=== PATIENT | male | born 1935 | race Caucasian/White ===

== ENCOUNTER 2017-06-19 08:25 | Observation (INO) ==
[2017-06-19] MEDS ORDERED: SALINE FLUSH 10ml SYRINGE IVF PRN (08:39)
--- OUTSIDE RECORDS SUMMARY | 2017-06-19 08:53 | External Medical Summary | Referral Summary ---
:1935 Author Organization [facility] [place] [id number] Care Team Providers Name Role Phone Jonathan Milligan Primary Care Physician Encounter VC Date(s): 02/06/15 - 02/06/15 [facility] [place] [phone] [phone] Discharge Diagnosis: CAD (coronary artery disease) Discharge Diagnosis: Atrial fibrillation Discharge Diagnosis: Pure hypercholesterolemia Discharge Diagnosis: Essential hypertension Discharge Disposition: 01-Home or Self Care Attending Physician: Jonathan Milligan MD Admitting Physician: Jonathan Milligan MD Vital Signs Most recent to oldest [Reference Range]: 1 Temperature Tympanic [36.6-38.1 degC] 36.2 degC *LOW* (02/06/15 3:07 PM) Peripheral Pulse Rate [60-100 bpm] 76 bpm (02/06/15 3:07 PM) Respiratory Rate [14-20 br/min] 20 br/min (02/06/15 3:07 PM) Blood Pressure [90-140/60-90 mmHg] 144/72 mmHg *HI* (02/06/15 3:07 PM) Problem List Condition Effective Dates Status Health Status Informant Atrial fibrillation(Confirmed) Active CAD (coronary artery Active disease)(Confirmed) Coronary arteriosclerosis Active (disorder)(Confirmed) Essential hypertension Active (disorder)(Confirmed) High cholesterol(Confirmed) Active Hypertension(Confirmed) Resolved Pure hypercholesterolemia Active (disorder)(Confirmed) Allergies, Adverse Reactions, Alerts No Known Allergies Medications aspirin 81 mg oral tablet 1 tabs, Oral, Daily, # 90 tabs, 0 Refill(s) Start Date: 02/01/14 Status: Orderedmetoprolol tartrate 100 mg oral tablet 1 tabs, Oral, BID, # 180 tabs, 0 Refill(s) Start Date: 02/01/14 Status: Orderednitroglycerin 0.4 mg sublingual tablet See Instructions, PLACE 1 UNDER TONGUE NEEDED FOR CHEST PAIN.MAY REPEAT IN 5 MIN. X3 TOTAL.NO RELIEF-CALL 911., # 25 tabs, 1 Refill(s), eRx: [facility] #[id number], PLACE 1 UNDER TONGUE NEEDED FOR CHEST PAIN.MAY REPEAT IN 5 MIN. X3 TOTAL.NO RE... Start Date: 01/02/15 Status: OrderedRefresh Plus ophthalmic solution 1 drops, Eye-Both, BID, as needed for dry eyes, # 30 mL, 0 Refill(s) Start Date: 02/01/14 Status: Orderedsimvastatin 20 mg oral tablet See Instructions, TAKE ONE TABLET BY MOUTH AT BEDTIME, # 30 tabs, 5 Refill(s), eRx: [facility]#[id number], TAKE ONE TABLET BY MOUTH AT BEDTIME Start Date: 02/17/15 Status: Orderedtriamcinolone 0.025% topical ointment 1 ofelia, Topical, BID, # 15 g, 0 Refill(s), Pharmacy: [facility] #[id number] Start Date: 10/25/14 Stop Date: 10/29/14 Status: Orderedwarfarin 2 mg oral tablet See Instructions, TAKE THREE TABLETS BY MOUTH ONCE A DAY OR DIRECTED., # 100 tabs, 2 Refill(s), eRx: [facility] #[id number], TAKE THREE TABLETS BY MOUTH ONCE A DAY OR DIRECTED. Start Date: 03/03/15 Status: Ordered Results Coagulation Most recent to oldest [Reference Range]: 1 INR [0.8-1.2] 1.6 1 *HI* (02/06/15 4:00 PM) 1Result Comment: Normal (no anticoagulant): 0.8 - 1.2 Units Routine Therapeutic Range: 2.0 - 3.0 Units High Risk Therapeutic Range: 2.5 - 3.5 Units Immunizations Vaccine Date Refusal Reason influenza virus vaccine, inactivated 05/08/14 influenza virus vaccine, live 05/16/13 influenza virus vaccine, live 04/19/12 pneumococcal 13-valent conjugate vaccine1 02/06/15 pneumococcal 23-polyvalent vaccine 11/09/06 tetanus-diphth toxoids (Td) adult/adol 12/15/11 zoster vaccine live 02/09/13 1Early/Late Reason: Nursing Judgment Procedures Procedure Date Related Diagnosis Body Site Eye examination1 04/14/15 Colonoscopy2 06/04/10 1Dr Torsten Cantu2Repeat in 5 years Social History Social History Type Response Smoking Status Never smoker Assessment and Plan Extracted from: Title: Ambulatory Patient Education Author: Jonathan Milligan MD Date: 02/06 Family Medicine Coronary Artery Disease Coronary artery disease (CAD) is a process in which the heart (coronary) arteries narrow or become blocked from the development of atherosclerosis. Atherosclerosis is a disease in which plaque builds up on the inside of the heart arteries (coronary arteries). Plaque is made up of fats (lipids), cholesterol, calcium, and fibrous tissue. CAD can lead to a heart attack (myocardial infarction, ID). An ID can lead to heart failure, cardiogenic shock, or sudden cardiac . CAD can cause an ID through: Plaque buildup that can severely narrow or block the coronary arteries and diminish blood flow. Plaque that can become unstable and "rupture." Unstable plaque that ruptures within a coronary artery can form a clot and cause a sudden (acute) blockage. RISK FACTORS Many risk factors contribute to the development of CAD. These include: High cholesterol (dyslipidemia) levels. High blood pressure (hypertension). Smoking. Diabetes. Age. Gender. Men can develop CAD earlier in life than women. Family history. Inactivity or lack of regular physical or aerobic exercise. A diet high in saturated fats. Chronic kidney disease. SYMPTOMS When a coronary artery is narrowed or blocked, an ID can occur. ID symptoms can include: Chest pain (agina). Angina can occur by itself or it can also occur with pain in the neck, arm, jaw, or in the upper, middle back (mid-scapular pain). Profuse sweating (diaphoresis) without physical activity or movement. Shortness of breath (dyspnea). Irregular heartbeats (palpitations) that feel like your heart is skipping beats or is beating very fast. Nausea. Epigastric pain. Epigastric pain may occur as "heartburn." Tiredness (malaise). This can especially be present in the elderly. Women can have different (atypical) symptoms other than classic angina. DIAGNOSIS The diagnosis of CAD may include: An electrocardiography (ECG). An ECG does not diagnose CAD, but it is usefull in the detection of a sudden (acute) ID or as a marker for a previous ID. Depending on which heart (coronary) artery ma y be blocked, an ECG may not pickle sorter an ID pattern. Exercise stress test. A stress test can be performed at rest for people who are unable to do an exercise stress test. A stress test will only be abnormal if one or more of the large coronary arteries is significantly blocked. Blood tests. Tests may include samples to detect heart muscle damage ( such as troponin levels). Other tests may include cholesterol checks and an inflammation test (high-sensitivity C-reactive protein, hs-CRP). Coronary angiography. Screening people who have peripheral vascular disease (PAD). These people often times have CAD. TREATMENT The treatment of CAD includes the following: Lifestyle changes such as: Following a heart-healthy diet. A registered dietitian can you help educate you on healthy food options and changes. Quiting smoking. Following an exercise program approved by your caregiver. Maintaining a healthy weight. Lose weight as approved by your caregiver. Medicines to help control your blood pressure, cholesterol level, angina, and blood clotting. Medicines may include beta-blockers, LEILANI inhibitors, statins , nitrates, and anti-platelet medicines. If you have a heart stent and are taking anti-platelet medicine, it is important to not suddenly stop taking this medicine. Suddenly stopping anti- platelet medicine can result in an ID. Talk with y our caregiver before stopping medicine or if you cannot afford your medicine. If the coronary arteries are significantly blocked, surgery may be needed. This can include: Percutaneous coronary intervention (PCI) with or without stent placement. Coronary artery bypass graft surgery (CABG). SEEK IMMEDIATE MEDICAL CARE IF: You develop ID symptoms. This is a medical emergency. Get help at once. Call your local emergency service (911 in the [place] immediately. Do not drive yourself to the clinic or hospital. ID symptoms can include: Angina or pain that occurs in the neck, arm, jaw, or in the upper middle back. Profuse sweating without cause. Shortness of breath or difficulty breathing without cause. Unexplained nausea or epigastric pain that feels like heartburn. Document Released: 09/25/2012 Document Reviewed: 09/25/2012 [facility] Patient Information 2015 [employer]. This information is not intended to replace advice given to you by your health care provider. Make sure you discuss any questions you have with your health care provider. Coronary Artery Disease Coronary artery disease (CAD) is a process in which the heart (coronary) arteries narrow or become blocked from the development of atherosclerosis. Atherosclerosis is a disease in which plaque builds up on the inside of the heart arteries (coronary arteries). Plaque is made up of fats (lipids), cholesterol, calcium, and fibrous tissue. CAD can lead to a heart attack (myocardial infarction, ID). An ID can lead to heart failure, cardiogenic shock, or sudden cardiac . CAD can cause an ID through: Plaque buildup that can severely narrow or block the coronary arteries and diminish blood flow. Plaque that can become unstable and "rupture." Unstable plaque that ruptures within a coronary artery can form a clot and cause a sudden (acute) blockage. RISK FACTORS Many risk factors contribute to the development of CAD. These include: High cholesterol (dyslipidemia) levels. High blood pressure (hypertension). Smoking. Diabetes. Age. Gender. Men can develop CAD earlier in life than women. Family history. Inactivity or lack of regular physical or aerobic exercise. A diet high in saturated fats. Chronic kidney disease. SYMPTOMS When a coronary artery is narrowed or blocked, an ID can occur. ID symptoms can include: Chest pain (agina). Angina can occur by itself or it can also occur with pain in the neck, arm, jaw, or in the upper, middle back (mid-scapular pain). Profuse sweating (diaphoresis) without physical activity or movement. Shortness of breath (dyspnea). Irregular heartbeats (palpitations) that feel like your heart is skipping beats or is beating very fast. Nausea. Epigastric pain. Epigastric pain may occur as "heartburn." Tiredness (malaise). This can especially be present in the elderly. Women can have different (atypical) symptoms other than classic angina. DIAGNOSIS The diagnosis of CAD may include: An electrocardiography (ECG). An ECG does not diagnose CAD, but it is usefull in the detection of a sudden (acute) ID or as a marker for a previous ID. Depending on which heart (coronary) artery ma y be blocked, an ECG may not pickle sorter an ID pattern. Exercise stress test. A stress test can be performed at rest for people who are unable to do an exercise stress test. A stress test will only be abnormal if one or more of the large coronary arteries is significantly blocked. Blood tests. Tests may include samples to detect heart muscle damage ( such as troponin levels). Other tests may include cholesterol checks and an inflammation test (high-sensitivity C-reactive protein, hs-CRP). Coronary angiography. Screening people who have peripheral vascular disease (PAD). These people often times have CAD. TREATMENT The treatment of CAD includes the following: Lifestyle changes such as: Following a heart-healthy diet. A registered dietitian can you help educate you on healthy food options and changes. Quiting smoking. Following an exercise program approved by your caregiver. Maintaining a healthy weight. Lose weight as approved by your caregiver. Medicines to help control your blood pressure, cholesterol level, angina, and blood clotting. Medicines may include beta-blockers, LEILANI inhibitors, statins , nitrates, and anti-platelet medicines. If you have a heart stent and are taking anti-platelet medicine, it is important to not suddenly stop taking this medicine. Suddenly stopping anti- platelet medicine can result in an ID. Talk with y our caregiver before stopping medicine or if you cannot afford your medicine. If the coronary arteries are significantly blocked, surgery may be needed. This can include: Percutaneous coronary intervention (PCI) with or without stent placement. Coronary artery bypass graft surgery (CABG). SEEK IMMEDIATE MEDICAL CARE IF: You develop ID symptoms. This is a medical emergency. Get help at once. Call your local emergency service (911 in the [place] immediately. Do not drive yourself to the clinic or hospital. ID symptoms can include: Angina or pain that occurs in the neck, arm, jaw, or in the upper middle back. Profuse sweating without cause. Shortness of breath or difficulty breathing without cause. Unexplained nausea or epigastric pain that feels like heartburn. Document Released: 09/25/2012 Document Reviewed: 09/25/2012 [employer] Patient Information 2015 [employer]. This information is not intended to replace advice given to you by your health care provider. Make sure you discuss any questions you have with your health care provider. Coronary Artery Disease Coronary artery disease (CAD) is a process in which the heart (coronary) arteries narrow or become blocked from the development of atherosclerosis. Atherosclerosis is a disease in which plaque builds up on the inside of the heart arteries (coronary arteries). Plaque is made up of fats (lipids), cholesterol, calcium, and fibrous tissue. CAD can lead to a heart attack (myocardial infarction, ID). An ID can lead to heart failure, cardiogenic shock, or sudden cardiac . CAD can cause an ID through: Plaque buildup that can severely narrow or block the coronary arteries and diminish blood flow. Plaque that can become unstable and "rupture." Unstable plaque that ruptures within a coronary artery can form a clot and cause a sudden (acute) blockage. RISK FACTORS Many risk factors contribute to the development of CAD. These include: High cholesterol (dyslipidemia) levels. High blood pressure (hypertension). Smoking. Diabetes. Age. Gender. Men can develop CAD earlier in life than women. Family history. Inactivity or lack of regular physical or aerobic exercise. A diet high in saturated fats. Chronic kidney disease. SYMPTOMS When a coronary artery is narrowed or blocked, an ID can occur. ID symptoms can include: Chest pain (agina). Angina can occur by itself or it can also occur with pain in the neck, arm, jaw, or in the upper, middle back (mid-scapular pain). Profuse sweating (diaphoresis) without physical activity or movement. Shortness of breath (dyspnea). Irregular heartbeats (palpitations) that feel like your heart is skipping beats or is beating very fast. Nausea. Epigastric pain. Epigastric pain may occur as "heartburn." Tiredness (malaise). This can especially be present in the elderly. Women can have different (atypical) symptoms other than classic angina. DIAGNOSIS The diagnosis of CAD may include: An electrocardiography (ECG). An ECG does not diagnose CAD, but it is usefull in the detection of a sudden (acute) ID or as a marker for a previous ID. Depending on which heart (coronary) artery ma y be blocked, an ECG may not pickle sorter an ID pattern. Exercise stress test. A stress test can be performed at rest for people who are unable to do an exercise stress test. A stress test will only be abnormal if one or more of the large coronary arteries is significantly blocked. Blood tests. Tests may include samples to detect heart muscle damage ( such as troponin levels). Other tests may include cholesterol checks and an inflammation test (high-sensitivity C-reactive protein, hs-CRP). Coronary angiography. Screening people who have peripheral vascular disease (PAD). These people often times have CAD. TREATMENT The treatment of CAD includes the following: Lifestyle changes such as: Following a heart-healthy diet. A registered dietitian can you help educate you on healthy food options and changes. Quiting smoking. Following an exercise program approved by your caregiver. Maintaining a healthy weight. Lose weight as approved by your caregiver. Medicines to help control your blood pressure, cholesterol level, angina, and blood clotting. Medicines may include beta-blockers, LEILANI inhibitors, statins , nitrates, and anti-platelet medicines. If you have a heart stent and are taking anti-platelet medicine, it is important to not suddenly stop taking this medicine. Suddenly stopping anti- platelet medicine can result in an ID. Talk with y our caregiver before stopping medicine or if you cannot afford your medicine. If the coronary arteries are significantly blocked, surgery may be needed. This can include: Percutaneous coronary intervention (PCI) with or without stent placement. Coronary artery bypass graft surgery (CABG). SEEK IMMEDIATE MEDICAL CARE IF: You develop ID symptoms. This is a medical emergency. Get help at once. Call your local emergency service (911 in the [place] immediately. Do not drive yourself to the clinic or hospital. ID symptoms can include: Angina or pain that occurs in the neck, arm, jaw, or in the upper middle back. Profuse sweating without cause. Shortness of breath or difficulty breathing without cause. Unexplained nausea or epigastric pain that feels like heartburn. Document Released: 09/25/2012 Document Reviewed: 09/25/2012 [facility] Patient Information 2015 [employer]. This information is not intended to replace advice given to you by your health care provider. Make sure you discuss any questions you have with your health care provider. Coronary Angioplasty Coronary angioplasty is a procedure to widen a narrowed or blocked blood vessel of the heart (coronary arteries). The artery is usually blocked by cholesterol buildup (plaque) in the lining or rasmussen. Wh en a vessel in the heart becomes partially blocked, there is decreased blood flow to that area. This may lead to chest pain or a heart attack (myocardial infarction). LET YOUR CAREGIVER KNOW ABOUT: Any allergies you have, including allergies to shellfish or contrast dye. All medicines you are taking, including vitamins, herbs, eye drops, creams , and [id number] medicines. Previous problems you or members of your family have had with the use of anesthetics. Any blood disorders you have. Previous surgeries you have had. Any previous kidney problems or failure you have had. Medical conditions you have. Possibility of , if this applies. RISKS AND COMPLICATIONS Generally, this is a safe procedure. However, as with any procedure, problems can occur. Possible problems include: Injury to the blood vessels, including rupture or bleeding. Infection, bleeding, or bruising at the catheter site. Allergic reaction to the dye or contrast used. Kidney damage from the dye or contrast used. Blood clots that can lead to a stroke or heart attack. Bleeding into the abdomen (retroperitoneal bleeding). BEFORE THE PROCEDURE Do not eat or drink after midnight on the night before the procedure up until the procedure or as directed by your health care provider. You may drink enough water to take your medicines the morning of the procedure, if you were instructed to do so. Ask your health care provider about changing or stopping your regular medicines. This is especially important if you are taking diabetes medicines or blood thinners. PROCEDURE You may be given a medicine to help you relax (sedative) before and during the procedure through an IV tube. The area where the catheter will be inserted will be washed and shaved. This is usually done in the groin but may be done in the fold of your arm (near your elbow) or in the wrist. A medicine will be given to numb the area where the catheter will be inserted (local anesthetic). The catheter will be inserted into an artery using a guide wire. The catheter is guided to the location of the narrowed or blocked artery with a type of X-ray called fluoroscopy. Dye is then injected and X-rays are taken. The dye helps to show where any narrowing or blockages are located. Once positioned at the narrowed or blocked portion of the blood vessel, a balloon is inflated to make the artery wider. Expanding the balloon crushes the plaque into the wall of the vessel and improves the blood flow. Sometimes the artery may be made wider by removing plaque using a laser or other tools. When the blood flow is better, the balloon is deflated and the catheter is removed. The catheter is removed and a special dressing is placed over the insertion site. AFTER THE PROCEDURE If the procedure is done through the leg, you will be kept in bed lying flat for 6 hours. You will be told to not bend or cross your legs. The insertion site will be checked often. The pulse in your feet or wrist will be checked often. Additional blood tests, X-rays, and an electrocardiogram (or electrocardiography) may be done. You may need to stay in the hospital overnight for monitoring. Document Released: 07/01/2001 Document Revised: 07/09/2014 Document Reviewed: 03/11/2014 [facility] Patient Information 2015 [employer]. This information is not intended to replace advice given to you by your health care provider. Make sure you discuss any questions you have with your health care provider. Coronary Artery Disease Coronary artery disease (CAD) is a process in which the heart (coronary) arteries narrow or become blocked from the development of atherosclerosis. Atherosclerosis is a disease in which plaque builds up on the inside of the heart arteries (coronary arteries). Plaque is made up of fats (lipids), cholesterol, calcium, and fibrous tissue. CAD can lead to a heart attack (myocardial infarction, ID). An ID can lead to heart failure, cardiogenic shock, or sudden cardiac . CAD can cause an ID through: Plaque buildup that can severely narrow or block the coronary arteries and diminish blood flow. Plaque that can become unstable and "rupture." Unstable plaque that ruptures within a coronary artery can form a clot and cause a sudden (acute) blockage. RISK FACTORS Many risk factors contribute to the development of CAD. These include: High cholesterol (dyslipidemia) levels. High blood pressure (hypertension). Smoking. Diabetes. Age. Gender. Men can develop CAD earlier in life than women. Family history. Inactivity or lack of regular physical or aerobic exercise. A diet high in saturated fats. Chronic kidney disease. SYMPTOMS When a coronary artery is narrowed or blocked, an ID can occur. ID symptoms can include: Chest pain (agina). Angina can occur by itself or it can also occur with pain in the neck, arm, jaw, or in the upper, middle back (mid-scapular pain). Profuse sweating (diaphoresis) without physical activity or movement. Shortness of breath (dyspnea). Irregular heartbeats (palpitations) that feel like your heart is skipping beats or is beating very fast. Nausea. Epigastric pain. Epigastric pain may occur as "heartburn." Tiredness (malaise). This can especially be present in the elderly. Women can have different (atypical) symptoms other than classic angina. DIAGNOSIS The diagnosis of CAD may include: An electrocardiography (ECG). An ECG does not diagnose CAD, but it is usefull in the detection of a sudden (acute) ID or as a marker for a previous ID. Depending on which heart (coronary) artery ma y be blocked, an ECG may not pickle sorter an ID pattern. Exercise stress test. A stress test can be performed at rest for people who are unable to do an exercise stress test. A stress test will only be abnormal if one or more of the large coronary arteries is significantly blocked. Blood tests. Tests may include samples to detect heart muscle damage ( such as troponin levels). Other tests may include cholesterol checks and an inflammation test (high-sensitivity C-reactive protein, hs-CRP). Coronary angiography. Screening people who have peripheral vascular disease (PAD). These people often times have CAD. TREATMENT The treatment of CAD includes the following: Lifestyle changes such as: Following a heart-healthy diet. A registered dietitian can you help educate you on healthy food options and changes. Quiting smoking. Following an exercise program approved by your caregiver. Maintaining a healthy weight. Lose weight as approved by your caregiver. Medicines to help control your blood pressure, cholesterol level, angina, and blood clotting. Medicines may include beta-blockers, LEILANI inhibitors, statins , nitrates, and anti-platelet medicines. If you have a heart stent and are taking anti-platelet medicine, it is important to not suddenly stop taking this medicine. Suddenly stopping anti- platelet medicine can result in an ID. Talk with y our caregiver before stopping medicine or if you cannot afford your medicine. If the coronary arteries are significantly blocked, surgery may be needed. This can include: Percutaneous coronary intervention (PCI) with or without stent placement. Coronary artery bypass graft surgery (CABG). SEEK IMMEDIATE MEDICAL CARE IF: You develop ID symptoms. This is a medical emergency. Get help at once. Call your local emergency service (911 in the [place] immediately. Do not drive yourself to the clinic or hospital. ID symptoms can include: Angina or pain that occurs in the neck, arm, jaw, or in the upper middle back. Profuse sweating without cause. Shortness of breath or difficulty breathing without cause. Unexplained nausea or epigastric pain that feels like heartburn. Document Released: 09/25/2012 Document Reviewed: 09/25/2012 [facility] Patient Information 2015 [employer]. This information is not intended to replace advice given to you by your health care provider. Make sure you discuss any questions you have with your health care provider. No follow up information was provided. Extracted from: Title: Office Visit Note Author: Jonathan Milligan MD Date: 02/06/15 Assessment/Plan Atrial fibrillation Chronic stable rate controlled. Medications reviewed no changes recommended. All up in 6 months. Ordered: Office Visit Level 4 Est 75813 CAD (coronary artery disease) No signs of ischemia. Dictations reviewed no changes recommended. He'll have his treadmill in February as mentioned above. Follow-up here in 6 months. Ordered: pneumococcal 13-valent conjugate vaccine, 0.5 mL, IntraMuscular, Once, First Dose: 02/06/15 16:00:00 CDT, Stop Date: 02/06/15 16:00:00 CDT, Form: Injection Office Visit Level 4 Est 42342 Essential hypertension Pressure appears to be adequately controlled. No change in current treatment is recommended. Follow-up in 6 months. Ordered: Office Visit Level 4 Est 39359 Pure hypercholesterolemia Recent laboratory studies are reviewed. Change in current treatment is recommended. Follow-up in 6 months. Ordered: Office Visit Level 4 Est 10747
--- OUTSIDE RECORDS SUMMARY | 2017-06-19 08:53 | External Medical Summary | Referral Summary ---
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 Discharge Diagnosis: Keratosis, seborrheic Discharge Diagnosis: AK (actinic keratosis) Discharge Diagnosis: Common wart Discharge Diagnosis: Ovalle angioma Discharge Disposition: 01-Home or Self Care Attending Physician: Tripp Stephens MD Admitting Physician: Tripp Stephens MD Vital Signs No data available for this section Problem List Condition Effective Dates Status Health Status Informant CAD (coronary artery Active disease)(Confirmed) Atrial fibrillation(Confirmed) Active Coronary arteriosclerosis Active (disorder)(Confirmed) Essential hypertension Active [...] 911., # 25 tabs, 1 Refill(s), [facility][id number], PLACE 1 UNDER TONGUE NEEDED FOR CHEST PAIN.MAY REPEAT IN 5 MIN. X3 TOTAL.NO RE... Start Date: 01/02/15 Status: OrderedRefresh Plus ophthalmic solution 1 drops, Eye-Both, BID, as needed for dry eyes, # 30 mL, 0 Refill(s) Start Date: 02/01/14 Status: Orderedsimvastatin 20 mg oral tablet See Instructions, TAKE ONE TABLET BY MOUTH AT BEDTIME, # 30 tabs, 5 Refill(s), eRx: [facility]#[id number], TAKE ONE TABLET BY MOUTH AT BEDTIME Start Date: 08/19/15 Status: Orderedwarfarin 2 mg oral tablet See Instructions, TAKE THREE TABLETS BY MOUTH ONCE A DAY OR DIRECTED., # 100 tabs, 5 Refill(s), eRx: [facility] #[id number], TAKE THREE TABLETS BY MOUTH ONCE A DAY OR DIRECTED. Start Date: 12/17/15 Status: Ordered Results No data available for this section Immunizations Vaccine Date Refusal Reason influenza virus vaccine, inactivated 07/21/15 influenza virus vaccine, inactivated 05/08/14 influenza virus vaccine, live 05/16/13 influenza virus vaccine, live 04/19/12 pneumococcal 13-valent conjugate vaccine1 02/06/15 pneumococcal 23-polyvalent vaccine 11/09/06 tetanus-diphth toxoids (Td) adult/adol 12/15/11 zoster vaccine live 02/09/13 1Early/Late Reason: Nursing Judgment Procedures Procedure Date Related Diagnosis Body Site Destruction (eg, laser surgery, electrosurgery, 12/26/15 cryosurgery, chemosurgery, surgical curettement), of benign lesions other than skin tags or cutaneous vascular proliferative lesions; up to 14 lesions Destruction (eg, laser surgery, electrosurgery, 12/26/15 cryosurgery, chemosurgery, surgical curettement), premalignant lesions (eg, actinic keratoses); first lesion Destruction (eg, laser surgery, electrosurgery, 12/26/15 cryosurgery, chemosurgery, surgical curettement), premalignant lesions (eg, actinic keratoses); second through 14 lesions, each (List separately in addition to code for first lesion) Eye examination1 04/14/15 Colonoscopy2 06/04/10 1Dr Torsten Cantu2Repeat in 5 years Social History Social History Type Response Smoking Status Never smoker Assessment and Plan Extracted from: Title: Office Visit Note Author: Tripp Stephens MD Date: 12/26/15 Assessment/Plan 1.AK (actinic keratosis) I froze 6 AK's on the face and ears with liquid nitrogen for 5-7 seconds each Ordered: Destruction premalignant lesion 1st 49669 Destruction premalignant lesion 2-14, Each 23309 2.Common wart Probably an inflamed wart on the right dorsal hand. We discussed options and risks and I froze the area with liquid nitrogen for 7 seconds today. He will follow-up for biopsy if this lesion persists or recurs Ordered: Destruction, Of Flat Warts, Molluscum Contagiosum, Or Milia; Up To 14 Lesions 69994 3.Keratosis, seborrheic Benign Ordered: Office Visit Level 3 Est 62697 4.Senile purpura He uses an irha-pld-suwlbul cream for this Ordered: Office Visit Level 3 Est 05948 5.History of squamous cell carcinoma in situ of skin No evidence of recurrence. Follow-up for next exam in 6 months or sooner as needed Ordered: Office Visit Level 3 Est 79451 6.Ovalle angioma Reassurance Ordered: Office Visit Level 3 Est 12149
--- OUTSIDE RECORDS SUMMARY | 2017-06-19 08:53 | External Medical Summary | Referral Summary ---
:1935 Author Organization [facility] [place] [address] Care Team Providers Name Role Phone Jonathan Milligan Primary Care Physician Encounter VC Date(s): 02/26/16 - 02/26/16 [facility] [place] [address]- Discharge Diagnosis: Essential hypertension Discharge Diagnosis: Strain of calf muscle Discharge Diagnosis: CAD (coronary artery disease) Discharge Diagnosis: Atrial fibrillation Discharge Diagnosis: Pure hypercholesterolemia Discharge Disposition: 01-Home or Self Care Attending Physician: Jonathan Milligan MD Admitting Physician: Jonathan Milligan MD Vital Signs Most recent to oldest [Reference Range]: 1 Temperature Tympanic [36.6-38.1 degC] 36.0 degC *LOW* (02/26/16 1:45 PM) Peripheral Pulse Rate [60-100 bpm] 80 bpm (02/26/16 1:45 PM) Respiratory Rate [14-20 br/min] 20 br/min (02/26/16 1:45 PM) Blood Pressure [90-140/60-90 mmHg] 138/60 mmHg (02/26/16 1:45 PM) Problem List Condition Effective Dates Status Health Status Informant CAD (coronary artery Active disease)(Confirmed) Atrial fibrillation(Confirmed) Active Coronary arteriosclerosis Active (disorder)(Confirmed) Essential hypertension Active (disorder)(Confirmed) High cholesterol(Confirmed) Active Hypertension(Confirmed) Resolved Pure hypercholesterolemia Active (disorder)(Confirmed) Allergies, Adverse Reactions, Alerts No Known Medication Allergies Medications aspirin 81 mg oral tablet 1 tabs, Oral, Daily, # 90 tabs, 0 Refill(s) Start Date: 02/01/14 Status: Orderedmeloxicam 15 mg oral tablet 15 mg 1 tabs, Oral, Daily, # 30 tabs, 0 Refill(s), Pharmacy: [facility] # [id number], 1 tabs Oral Daily Start Date: 01/21/16 Status: Orderedmetoprolol tartrate 100 mg oral tablet 1 tabs, Oral, BID, # 180 tabs, 0 Refill(s) Start Date: 02/01/14 Status: Orderednitroglycerin 0.4 mg sublingual tablet See Instructions, PLACE 1 UNDER TONGUE NEEDED FOR CHEST PAIN.MAY REPEAT IN 5 MIN. X3 TOTAL.NO RELIEF-CALL 911., # 25 tabs, 1 Refill(s), eRx: [facility] #[id number], PLACE 1 UNDER TONGUE NEEDED FOR CHEST PAIN.MAY REPEAT IN 5 MIN. X3 TOTAL.NO RE... Start Date: 01/02/15 Status: OrderedRefresh Plus ophthalmic solution 1 drops, Eye-Both, BID, as needed for dry eyes, # 30 mL, 0 Refill(s) Start Date: 02/01/14 Status: Orderedsimvastatin 20 mg oral tablet See Instructions, TAKE ONE TABLET BY MOUTH AT BEDTIME, # 90 tabs, 3 Refill(s), Pharmacy: [facility] #[id number], TAKE ONE TABLET BY MOUTH AT BEDTIME Start Date: 02/17/16 Status: Orderedwarfarin 2 mg oral tablet See Instructions, TAKE THREE TABLETS BY MOUTH ONCE A DAY OR DIRECTED., # 100 tabs, 5 Refill(s), eRx: [facility] #[id number], TAKE THREE TABLETS BY MOUTH ONCE A DAY OR DIRECTED. Start Date: 12/17/15 Status: Ordered Results Chemistry Most recent to oldest [Reference Range]: 1 Estimated Creatinine Clearance 68.53 mL/min (02/26/16 1:50 PM) Immunizations Vaccine Date Refusal Reason influenza virus vaccine, inactivated 07/21/15 influenza virus vaccine, inactivated 05/08/14 influenza virus vaccine, live 05/16/13 influenza virus vaccine, live 04/19/12 pneumococcal 13-valent conjugate vaccine1 02/06/15 pneumococcal 23-polyvalent vaccine 11/09/06 tetanus-diphth toxoids (Td) adult/adol 12/15/11 zoster vaccine live 02/09/13 1Early/Late Reason: Nursing Judgment Procedures Procedure Date Related Diagnosis Body Site Eye examination1 04/14/15 Colonoscopy2 06/04/10 1Dr Torsten [id number] in 5 years Social History Social History Type Response Smoking Status Never smoker Assessment and Plan Extracted from: Title: Office Visit Note Author: Jonathan Milligan MD Date: 02/26/16 Assessment/Plan 1.Atrial fibrillation, Chronic atrial fibrillation He sounded to be in normal sinus rhythm today. No change in treatment continue anticoagulation therapy. He'll continue to follow-up with his voice coach as well. Recheck in 3 months. Ordered: Office Visit Level 4 Est 84402 2.CAD (coronary artery disease), Atherosclerotic heart disease of [place] coronary artery without angina pectoris chronic stable no signs of angina no change in current treatment recommended. Recheck in 3 months. Ordered: Office Visit Level 4 Est 48413 3.Essential hypertension, Essential (primary) hypertension Blood pressure is adequately controlled. Medications and treatments reviewed no changes recommended. Report card reviewed and provided. Follow- up in 3 months. Ordered: Office Visit Level 4 Est 69172 4.Pure hypercholesterolemia, Pure hypercholesterolemia Chronic relatively stable no change in current treatment. Fasting lab prior to next appointment in 3 months. Ordered: Office Visit Level 4 Est 83770 5.Strain of calf muscle, Strain of other muscle(s) and tendon(s) at lower leg level, unspecified leg, initial encounter Overall this appears to be slowly improving. Change in current treatment at this time he'll continue to work with therapy and home exercises if symptoms worsen or further problems develop follow-up. Ordered: Office Visit Level 4 Est 15923
--- OUTSIDE RECORDS SUMMARY | 2017-06-19 08:53 | External Medical Summary | Referral Summary ---
:1935 Author Organization [facility] Address [address] [place] [address] [place] [address] Care Team Providers Name Role Phone Jonathan Milligan Primary Care Physician Encounter VC Date(s): 07/17/15 - 07/17/15 [facility], [address] [place] [address]- [place] Discharge Diagnosis: De Quervain's tenosynovitis, right Discharge Disposition: 01-Home or Self Care Attending Physician: Juan Potter PA-C Admitting Physician: Juan Potter PA-C Vital Signs Most recent to oldest [Reference Range]: 1 Temperature Tympanic [36.6-38.1 degC] 36.3 degC *LOW* (07/17/15 1:13 PM) Apical Heart Rate [60-100 bpm] 68 bpm (07/17/15 1:13 PM) Blood Pressure [90-140/60-90 mmHg] 124/74 mmHg (07/17/15 1:13 PM) SpO2 98 % (07/17/15 1:13 PM) Problem List Condition Effective Dates Status [...] 911., # 25 tabs, 1 Refill(s), eRx: [facility] #[id number], PLACE 1 UNDER TONGUE NEEDED FOR CHEST PAIN.MAY REPEAT IN 5 MIN. X3 TOTAL.NO RE... Start Date: 01/02/15 Status: OrderedRefresh Plus ophthalmic solution 1 drops, Eye-Both, BID, as needed for dry eyes, # 30 mL, 0 Refill(s) Start Date: 02/01/14 Status: Orderedsimvastatin 20 mg oral tablet See Instructions, TAKE ONE TABLET BY MOUTH AT BEDTIME, # 30 tabs, 5 Refill(s), eRx: [facility]#[id number], TAKE ONE TABLET BY MOUTH AT BEDTIME Start Date: 02/17/15 Status: Orderedwarfarin 2 mg oral tablet See Instructions, TAKE THREE TABLETS BY MOUTH ONCE A DAY OR DIRECTED., # 100 tabs, 3 Refill(s), eRx: [facility] #[id number], TAKE THREE TABLETS BY MOUTH ONCE A DAY OR DIRECTED. Start Date: 07/07/15 Status: Ordered Results Coagulation Most recent to oldest [Reference Range]: 1 PT Venous (07/17/15 1:31 PM) INR [0.8-1.2] 2.8 1 *HI* (07/17/15 1:31 PM) 1Result Comment: Normal (no anticoagulant): 0.8 [...] smoker Assessment and Plan Extracted from: Title: Right wrist bruise Author: Juan Potter PA-C Date: 07/17/15 Assessment/Plan De Quervain's tenosynovitis, right Patient was fit with a thumb spica splint, I recommended he use this for 2 weeksif he was still having significant discomfort he can follow upwith his primary care for additional treatment,possible steroid injection or Medrol Dosepak as he is unable to take NSAIDs. Protime monitoring INR was within normal limits at 2.8 today. Wrist pain, right As above Ordered: Wrist hand finger orthosis, without joint(s), prefabricated, includes fitting [id number]
--- OUTSIDE RECORDS SUMMARY | 2017-06-19 08:53 | External Medical Summary | Referral Summary ---
:1935 [facility] Address [address] [place] [address] [place] [address] Care Team Providers Name Role Phone Jonathan Milligan Primary Care Physician Encounter VC Date(s): 07/21/15 - 07/21/15 [facility] [place] [address] [place] Discharge Diagnosis: Right forearm pain Discharge Disposition: 01-Home or Self Care Attending Physician: Brenda Randall APRN Admitting Physician: Brenda Randall APRN Vital Signs Most recent to oldest [Reference Range]: 1 Temperature Tympanic [36.6-38.1 degC] 36.4 degC *LOW* (07/21/15 2:22 PM) Peripheral Pulse Rate [60-100 bpm] 88 bpm (07/21/15 2:22 PM) Blood Pressure [90-140/60-90 mmHg] 148/76 mmHg *HI* (07/21/15 2:22 PM) Problem List Condition Effective Dates Status [...] 911., # 25 tabs, 1 Refill(s), eRx: [facility] #[id number], PLACE 1 UNDER TONGUE NEEDED FOR CHEST PAIN.MAY REPEAT IN 5 MIN. X3 TOTAL.NO RE... Start Date: 01/02/15 Status: OrderedRefresh Plus ophthalmic solution 1 drops, Eye-Both, BID, as needed for dry eyes, # 30 mL, 0 Refill(s) Start Date: 02/01/14 Status: Orderedsimvastatin 20 mg oral tablet See Instructions, TAKE ONE TABLET BY MOUTH AT BEDTIME, # 30 tabs, 5 Refill(s), eRx: [facility]#[id number], TAKE ONE TABLET BY MOUTH AT BEDTIME Start Date: 02/17/15 Status: Orderedwarfarin 2 mg oral tablet See Instructions, TAKE THREE TABLETS BY MOUTH ONCE A DAY OR DIRECTED., # 100 tabs, 3 Refill(s), eRx: [facility] #[id number], TAKE THREE TABLETS BY MOUTH ONCE A DAY OR DIRECTED. Start Date: 07/07/15 Status: Ordered Results No data available for [...] and Plan Extracted from: Title: Office Visit Note-wrist Author: Brenda Randall DONOR RELATIONS COORDINATOR Date: 07/21/15 Assessment/Plan 1.Right forearm pain I am concerned about a possible muscle or tendon tear. Recommend MRI of the forearm for further evaluation. The lump that I appreciate could also be a hematoma considering the amount of bruisingand that he had. Recommend he continue to wear the thumb spica splint. Tylenol for pain. Denies need for something stronger. Ice the area 20 minutes 2 or 3 times per day . Avoid activities that exacerbate the pain. Follow up pending MRI results. Ordered: Office Visit Level 3 Est 74909
--- OUTSIDE RECORDS SUMMARY | 2017-06-19 08:53 | External Medical Summary | Referral Summary ---
:1935 Author Organization [facility] [place] [address] Care Team Providers Name Role Phone Jonathan Milligan Primary Care Physician Encounter VC Date(s): 02/06/15 - 02/06/15 [facility] [place] [address]- Discharge Diagnosis: CAD (coronary artery disease) Discharge [...] 911., # 25 tabs, 1 Refill(s), eRx: [facility] #[id number], PLACE 1 UNDER TONGUE NEEDED FOR CHEST PAIN.MAY REPEAT IN 5 MIN. X3 TOTAL.NO RE... Start Date: 01/02/15 Status: OrderedRefresh Plus ophthalmic solution 1 drops, Eye-Both, BID, as needed for dry eyes, # 30 mL, 0 Refill(s) Start Date: 02/01/14 Status: Orderedsimvastatin 20 mg oral tablet See Instructions, TAKE ONE TABLET BY MOUTH AT BEDTIME, # 30 tabs, 5 Refill(s), eRx: [facility]#[id number], TAKE ONE TABLET BY MOUTH AT BEDTIME Start Date: 02/17/15 Status: Orderedtriamcinolone 0.025% topical ointment 1 ofelia, Topical, BID, # 15 g, 0 Refill(s), Pharmacy: [facility] #[id number] Start Date: 10/25/14 Stop Date: 10/29/14 Status: Orderedwarfarin 2 mg oral tablet See Instructions, TAKE THREE TABLETS BY MOUTH ONCE A DAY OR DIRECTED., # 100 tabs, 2 Refill(s), eRx: [facility] #[id number], TAKE THREE TABLETS BY MOUTH ONCE A [...] lead to a heart attack (myocardial infarction, NH). An NH can lead to heart failure, cardiogenic shock, or sudden cardiac . CAD can cause an NH through: Plaque buildup that can severely narrow [...] coronary artery is narrowed or blocked, an NH can occur. NH symptoms can include: Chest pain (agina). Angina [...] in the detection of a sudden (acute) NH or as a marker for a previous NH. Depending on which heart (coronary) artery ma y be blocked, an ECG may not picking belt operator an NH pattern. Exercise stress test. A stress test [...] anti- platelet medicine can result in an NH. Talk with y our caregiver before stopping medicine or if you cannot afford your medicine. If the coronary arteries are significantly blocked, surgery may be needed. This can include: Percutaneous coronary intervention (PCI) with or without stent placement. Coronary artery bypass graft surgery (CABG). SEEK IMMEDIATE MEDICAL CARE IF: You develop NH symptoms. This is a medical emergency. Get help at once. Call your local emergency service (911 in the [place] immediately. Do not drive yourself to the clinic or hospital. NH symptoms can include: Angina or pain that occurs in the neck, arm, jaw, or in the upper middle back. Profuse sweating without cause. Shortness of breath or difficulty breathing without cause. Unexplained nausea or epigastric pain that feels like heartburn. Document Released: 09/25/2012 Document Reviewed: 09/25/2012 [facility] Patient Information 2015 [employer]. This information is not intended to replace [...] lead to a heart attack (myocardial infarction, NH). An NH can lead to heart failure, cardiogenic shock, or sudden cardiac . CAD can cause an NH through: Plaque buildup that can severely narrow [...] coronary artery is narrowed or blocked, an NH can occur. NH symptoms can include: Chest pain (agina). Angina [...] in the detection of a sudden (acute) NH or as a marker for a previous NH. Depending on which heart (coronary) artery ma y be blocked, an ECG may not picking belt operator an NH pattern. Exercise stress test. A stress test [...] anti- platelet medicine can result in an NH. Talk with y our caregiver before stopping medicine or if you cannot afford your medicine. If the coronary arteries are significantly blocked, surgery may be needed. This can include: Percutaneous coronary intervention (PCI) with or without stent placement. Coronary artery bypass graft surgery (CABG). SEEK IMMEDIATE MEDICAL CARE IF: You develop NH symptoms. This is a medical emergency. Get help at once. Call your local emergency service (911 in the [place] immediately. Do not drive yourself to the clinic or hospital. NH symptoms can include: Angina or pain that occurs in the neck, arm, jaw, or in the upper middle back. Profuse sweating without cause. Shortness of breath or difficulty breathing without cause. Unexplained nausea or epigastric pain that feels like heartburn. Document Released: 09/25/2012 Document Reviewed: 09/25/2012 [employer] Patient Information 2015 [employer]. This information is not intended to replace [...] lead to a heart attack (myocardial infarction, NH). An NH can lead to heart failure, cardiogenic shock, or sudden cardiac . CAD can cause an NH through: Plaque buildup that can severely narrow [...] coronary artery is narrowed or blocked, an NH can occur. NH symptoms can include: Chest pain (agina). Angina [...] in the detection of a sudden (acute) NH or as a marker for a previous NH. Depending on which heart (coronary) artery ma y be blocked, an ECG may not picking belt operator an NH pattern. Exercise stress test. A stress test [...] anti- platelet medicine can result in an NH. Talk with y our caregiver before stopping medicine or if you cannot afford your medicine. If the coronary arteries are significantly blocked, surgery may be needed. This can include: Percutaneous coronary intervention (PCI) with or without stent placement. Coronary artery bypass graft surgery (CABG). SEEK IMMEDIATE MEDICAL CARE IF: You develop NH symptoms. This is a medical emergency. Get help at once. Call your local emergency service (911 in the [place] immediately. Do not drive yourself to the clinic or hospital. NH symptoms can include: Angina or pain that occurs in the neck, arm, jaw, or in the upper middle back. Profuse sweating without cause. Shortness of breath or difficulty breathing without cause. Unexplained nausea or epigastric pain that feels like heartburn. Document Released: 09/25/2012 Document Reviewed: 09/25/2012 [facility] Patient Information 2015 [employer]. This information is not intended to replace [...] vitamins, herbs, eye drops, creams , and chgw-zcf-eojvbhn medicines. Previous problems you or members of [...] 07/01/2001 Document Revised: 07/09/2014 Document Reviewed: 03/11/2014 [facility] Patient Information 2015 [employer]. This information is not intended to replace [...] lead to a heart attack (myocardial infarction, NH). An NH can lead to heart failure, cardiogenic shock, or sudden cardiac . CAD can cause an NH through: Plaque buildup that can severely narrow [...] coronary artery is narrowed or blocked, an NH can occur. NH symptoms can include: Chest pain (agina). Angina [...] in the detection of a sudden (acute) NH or as a marker for a previous NH. Depending on which heart (coronary) artery ma y be blocked, an ECG may not picking belt operator an NH pattern. Exercise stress test. A stress test [...] anti- platelet medicine can result in an NH. Talk with y our caregiver before stopping medicine or if you cannot afford your medicine. If the coronary arteries are significantly blocked, surgery may be needed. This can include: Percutaneous coronary intervention (PCI) with or without stent placement. Coronary artery bypass graft surgery (CABG). SEEK IMMEDIATE MEDICAL CARE IF: You develop NH symptoms. This is a medical emergency. Get help at once. Call your local emergency service (911 in the [place] immediately. Do not drive yourself to the clinic or hospital. NH symptoms can include: Angina or pain that occurs in the neck, arm, jaw, or in the upper middle back. Profuse sweating without cause. Shortness of breath or difficulty breathing without cause. Unexplained nausea or epigastric pain that feels like heartburn. Document Released: 09/25/2012 Document Reviewed: 09/25/2012 [facility] Patient Information 2015 [employer]. This information is not intended to replace [...] months. Ordered: Office Visit Level 4 Est 78408 CAD (coronary artery disease) No signs of ischemia. Dictations reviewed no changes recommended. He'll have his treadmill in February as mentioned above. Follow-up here in 6 months. Ordered: pneumococcal 13-valent conjugate vaccine, 0.5 mL, IntraMuscular, Once, First Dose: 02/06/15 16:00:00 CDT, Stop Date: 02/06/15 16:00:00 CDT, Form: Injection Office Visit Level 4 Est 85110 Essential hypertension Pressure appears to be adequately controlled. No change in current treatment is recommended. Follow-up in 6 months. Ordered: Office Visit Level 4 Est 88455 Pure hypercholesterolemia Recent laboratory studies are reviewed. Change in current treatment is recommended. Follow-up in 6 months. Ordered: Office Visit Level 4 Est 88355
--- OUTSIDE RECORDS SUMMARY | 2017-06-19 08:53 | External Medical Summary | Referral Summary ---
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 X3 TOTAL.NO RE... Start Date: 01/02/15 Status: OrderedRefresh Plus ophthalmic solution 1 drops, Eye-Both, BID, as needed for dry eyes, # 30 mL, 0 Refill(s) Start Date: 02/01/14 Status: Orderedsimvastatin 20 mg oral tablet See Instructions, TAKE ONE TABLET BY MOUTH AT BEDTIME, # 30 tabs, 5 Refill(s), eRx: [facility]#[id number], TAKE ONE TABLET BY MOUTH AT BEDTIME Start Date: 02/17/15 Status: Orderedtriamcinolone 0.025% topical ointment 1 ofelia, Topical, BID, # 15 g, 0 Refill(s), Pharmacy: [facility] #[id number] Start Date: 10/25/14 Stop Date: 10/29/14 Status: Orderedwarfarin 2 mg oral tablet See Instructions, TAKE THREE TABLETS BY MOUTH ONCE A DAY OR DIRECTED., # 100 tabs, 2 Refill(s), eRx: [facility] #[id number], TAKE THREE TABLETS BY MOUTH ONCE A DAY OR DIRECTED. Start Date: 03/03/15 Status: Ordered Results No data available for this section Immunizations Vaccine Date Refusal Reason influenza virus vaccine, inactivated 05/08/14 influenza virus vaccine, live 05/16/13 influenza virus vaccine, live 04/19/12 pneumococcal 13-valent conjugate vaccine1 02/06/15 pneumococcal 23-polyvalent vaccine 11/09/06 tetanus-diphth toxoids (Td) adult/adol 12/15/11 zoster vaccine live 02/09/13 1Early/Late Reason: Nursing Judgment Procedures Procedure Date Related Diagnosis Body Site Eye examination1 04/14/15 Destruction (eg, laser surgery, electrosurgery, 12/20/14 cryosurgery, chemosurgery, surgical curettement), premalignant lesions (eg, actinic keratoses); first lesion Colonoscopy2 06/04/10 1Dr Torsten Cantu2Repeat in 5 years Social History Social History Type Response Smoking Status Never smoker Assessment and Plan Extracted from: Title: Office Visit Note Author: Tripp Stephens MD Date: 12/20/14 Assessment/Plan 1.AK (actinic keratosis) I froze one AK on left malar cheek with liquid nitrogen Discussed diagnosis and prognosis and treatment of actinic keratoses. Patient elected for cryotherapy. Discussed options/risks/benefits of the procedure. Specifically discussed risks of scarring , abnormal scarring, skin changes such as color or texture changes, blistering , recurrence, bleeding, infection, need for further treatment, and other unexpected risks/outcomes of these types of skin pr ocedures. Patient expressed understanding and consented to the procedure(s). I froze one AK with LN2 for approximately 5-7 seconds. Wound care instructions given. Discussed/educated patient on sun protection measures, importance of sun protection, and need for self-skin examination. Recommended regular (at least yearly, or sooner if directed in other follow-up instructions) dermatology fol low-up examinations due to high-risk of more AK's and risk of skin cancers, and recommend follow-up dermatology examination for any changing or concerning moles, growths, or skin changes of concern. Ordered: Destruction premalignant lesion 1st 37361 Office Visit Level 3 Est 57659 2.Squamous cell carcinoma in situ of skin The treated site on the left anabaptist now appears clear we will continue to follow this area closely, he will use good sun protection and follow-up in 6 months unless he notices any other problem Ordered: Office Visit Level 3 Est 06386 3.Seborrheic keratoses Reassurance Ordered: Office Visit Level 3 Est 37233 4.Senile purpura Reassurance and sun protection Ordered: Office Visit Level 3 Est 69500 5.EIC (epidermal inclusion cyst) Asymptomatic, reassurance Ordered: Office Visit Level 3 Est 13209
--- OUTSIDE RECORDS SUMMARY | 2017-06-19 08:53 | External Medical Summary | Referral Summary ---
:1935 Author Organization [facility] Address [address] [place] [address] Care Team Providers Name Role Phone Jonathan Milligan Primary Care Physician Encounter VC Date(s): 12/20/14 - 12/20/14 [facility] [address] [place] [address] [place] Discharge Diagnosis: Squamous cell [...] 911., # 25 tabs, 1 Refill(s), eRx: [facility] #[id number], PLACE 1 UNDER TONGUE NEEDED FOR CHEST PAIN.MAY REPEAT IN 5 MIN. X3 TOTAL.NO RE... Start Date: 01/02/15 Status: OrderedRefresh Plus ophthalmic solution 1 drops, Eye-Both, BID, as needed for dry eyes, # 30 mL, 0 Refill(s) Start Date: 02/01/14 Status: Orderedsimvastatin 20 mg oral tablet See Instructions, TAKE ONE TABLET BY MOUTH AT BEDTIME, # 30 tabs, 5 Refill(s), eRx: [facility]#[id number], TAKE ONE TABLET BY MOUTH AT BEDTIME Start Date: 02/17/15 Status: Orderedtriamcinolone 0.025% topical ointment 1 ofelia, Topical, BID, # 15 g, 0 Refill(s), Pharmacy: [facility] #[id number] Start Date: 10/25/14 Stop Date: 10/29/14 Status: Orderedwarfarin 2 mg oral tablet See Instructions, TAKE THREE TABLETS BY MOUTH ONCE A DAY OR DIRECTED., # 100 tabs, 2 Refill(s), eRx: [facility] #[id number], TAKE THREE TABLETS BY MOUTH ONCE A [...] of concern. Ordered: Destruction premalignant lesion 1st 77945 Office Visit Level 3 Est 91718 2.Squamous cell carcinoma in situ of skin The treated site on the left episcopal now appears clear we will continue to follow this area closely, he will use good sun protection and follow-up in 6 months unless he notices any other problem Ordered: Office Visit Level 3 Est 50903 3.Seborrheic keratoses Reassurance Ordered: Office Visit Level 3 Est 04693 4.Senile purpura Reassurance and sun protection Ordered: Office Visit Level 3 Est 16484 5.EIC (epidermal inclusion cyst) Asymptomatic, reassurance Ordered: Office Visit Level 3 Est 09551
--- OUTSIDE RECORDS SUMMARY | 2017-06-19 08:53 | External Medical Summary | Referral Summary ---
:1935 Author Organization [facility] [place] [address] Care Team Providers Name Role Phone Jonathan Milligan Primary Care Physician Encounter VC Date(s): 08/08/15 - 08/08/15 [facility] [place] [address] [place] Discharge Diagnosis: Essential hypertension Discharge Diagnosis: Contusion of right arm Discharge Diagnosis: Pure hypercholesterolemia Discharge Diagnosis: Coronary arteriosclerosis Discharge Disposition: 01-Home or Self Care Attending Physician: Jonathan Milligan MD Admitting Physician: Jonathan Milligan MD Vital Signs Most recent to oldest [Reference Range]: 1 Temperature Tympanic [36.6-38.1 degC] 36.0 degC *LOW* (08/08/15 3:06 PM) Peripheral Pulse Rate [60-100 bpm] 88 bpm (08/08/15 3:06 PM) Respiratory Rate [14-20 br/min] 24 br/min *HI* (08/08/15 3:06 PM) Blood Pressure [90-140/60-90 mmHg] 154/84 mmHg *HI* (08/08/15 3:06 PM) Problem List Condition Effective Dates Status [...] 911., # 25 tabs, 1 Refill(s), eRx: [facility] #[id number], PLACE 1 UNDER TONGUE NEEDED FOR CHEST PAIN.MAY REPEAT IN 5 MIN. X3 TOTAL.NO RE... Start Date: 01/02/15 Status: OrderedRefresh Plus ophthalmic solution 1 drops, Eye-Both, BID, as needed for dry eyes, # 30 mL, 0 Refill(s) Start Date: 02/01/14 Status: Orderedsimvastatin 20 mg oral tablet See Instructions, TAKE ONE TABLET BY MOUTH AT BEDTIME, # 30 tabs, 5 Refill(s), eRx: [facility]#[id number], TAKE ONE TABLET BY MOUTH AT BEDTIME Start Date: 02/17/15 Status: Orderedwarfarin 2 mg oral tablet See Instructions, TAKE THREE TABLETS BY MOUTH ONCE A DAY OR DIRECTED., # 100 tabs, 3 Refill(s), eRx: [facility] #[id number], TAKE THREE TABLETS BY MOUTH ONCE A [...] Visit Note Author: Jonathan Milligan MD Date: 08/08/15 Assessment/Plan Atherosclerotic heart disease of [place] coronary artery without angina pectoris, Coronary arteriosclerosis Chronic stable no change in current treatment is recommended. No signs of angina. Recheck in 3 months. Ordered: Office Visit Level 4 Est 98260 Contusion of right arm, Contusion of right upper arm, initial encounter I don't think this needs to be re-x-rayed at this point. Continue to follow and monitor. Likely won't be able to return to work for another couple of weeks. Ordered: Office Visit Level 4 Est 07231 Essential (primary) hypertension, Essential hypertension Blood pressure is running high here today. I've asked him to check it twice weekly at home over the next few weeks and report those numbers. Recheck in 3 months. Ordered: Office Visit Level 4 Est 12417 Pure hypercholesterolemia, Pure hypercholesterolemia Recent laboratory studies reviewed and overallstudies are reasonable. No change in current treatment is recommended. Rechecklab in 6 months. Ordered: Office Visit Level 4 Est 71480
--- OUTSIDE RECORDS SUMMARY | 2017-06-19 08:53 | External Medical Summary | Referral Summary ---
:1935 Author Organization [facility] [place] [address] Care Team Providers Name Role Phone Jonathan Milligan Primary Care Physician Encounter VC Date(s): 02/06/15 - 02/06/15 [facility] [place] [address]- Discharge Diagnosis: CAD (coronary artery disease) Discharge [...] 911., # 25 tabs, 1 Refill(s), eRx: [facility] #[id number], PLACE [address] UNDER TONGUE NEEDED FOR CHEST [...] 5 Refill(s), eRx: [facility]#[id number], TAKE ONE TABLET BY MOUTH AT BEDTIME Start Date: 02/17/15 Status: Orderedwarfarin 2 mg oral tablet See Instructions, TAKE THREE TABLETS BY MOUTH ONCE A DAY OR DIRECTED., # 100 tabs, 3 Refill(s), eRx: [facility] #[id number], TAKE THREE TABLETS BY MOUTH ONCE A [...] Eye examination1 04/14/15 Colonoscopy2 06/04/10 1Dr Torsten [id number] in 5 years Social History Social History [...] lead to a heart attack (myocardial infarction, AR). An AR can lead to heart failure, cardiogenic shock, or sudden cardiac . CAD can cause an AR through: Plaque buildup that can severely narrow [...] coronary artery is narrowed or blocked, an AR can occur. AR symptoms can include: Chest pain (agina). Angina [...] in the detection of a sudden (acute) AR or as a marker for a previous AR. Depending on which heart (coronary) artery ma y be blocked, an ECG may not fruit picker an AR pattern. Exercise stress test. A stress test [...] anti- platelet medicine can result in an AR. Talk with y our caregiver before stopping medicine or if you cannot afford your medicine. If the coronary arteries are significantly blocked, surgery may be needed. This can include: Percutaneous coronary intervention (PCI) with or without stent placement. Coronary artery bypass graft surgery (CABG). SEEK IMMEDIATE MEDICAL CARE IF: You develop AR symptoms. This is a medical emergency. Get help at once. Call your local emergency service (911 in the [place] immediately. Do not drive yourself to the clinic or hospital. AR symptoms can include: Angina or pain that occurs in the neck, arm, jaw, or in the upper middle back. Profuse sweating without cause. Shortness of breath or difficulty breathing without cause. Unexplained nausea or epigastric pain that feels like heartburn. Document Released: 09/25/2012 Document Reviewed: 09/25/2012 [employer] Patient Information 2014 [employer]. This information is not intended to replace [...] lead to a heart attack (myocardial infarction, AR). An AR can lead to heart failure, cardiogenic shock, or sudden cardiac . CAD can cause an AR through: Plaque buildup that can severely narrow [...] coronary artery is narrowed or blocked, an AR can occur. AR symptoms can include: Chest pain (agina). Angina [...] in the detection of a sudden (acute) AR or as a marker for a previous AR. Depending on which heart (coronary) artery ma y be blocked, an ECG may not fruit picker an AR pattern. Exercise stress test. A stress test [...] anti- platelet medicine can result in an AR. Talk with y our caregiver before stopping medicine or if you cannot afford your medicine. If the coronary arteries are significantly blocked, surgery may be needed. This can include: Percutaneous coronary intervention (PCI) with or without stent placement. Coronary artery bypass graft surgery (CABG). SEEK IMMEDIATE MEDICAL CARE IF: You develop AR symptoms. This is a medical emergency. Get help at once. Call your local emergency service (911 in the [place] immediately. Do not drive yourself to the clinic or hospital. AR symptoms can include: Angina or pain that occurs in the neck, arm, jaw, or in the upper middle back. Profuse sweating without cause. Shortness of breath or difficulty breathing without cause. Unexplained nausea or epigastric pain that feels like heartburn. Document Released: 09/25/2012 Document Reviewed: 09/25/2012 [facility] Patient Information 2015 [employer] [facility]. This information is not intended to replace [...] lead to a heart attack (myocardial infarction, AR). An AR can lead to heart failure, cardiogenic shock, or sudden cardiac . CAD can cause an AR through: Plaque buildup that can severely narrow [...] coronary artery is narrowed or blocked, an AR can occur. AR symptoms can include: Chest pain (agina). Angina [...] in the detection of a sudden (acute) AR or as a marker for a previous AR. Depending on which heart (coronary) artery ma y be blocked, an ECG may not fruit picker an AR pattern. Exercise stress test. A stress test [...] anti- platelet medicine can result in an AR. Talk with y our caregiver before stopping medicine or if you cannot afford your medicine. If the coronary arteries are significantly blocked, surgery may be needed. This can include: Percutaneous coronary intervention (PCI) with or without stent placement. Coronary artery bypass graft surgery (CABG). SEEK IMMEDIATE MEDICAL CARE IF: You develop AR symptoms. This is a medical emergency. Get help at once. Call your local emergency service (911 in the [place] immediately. Do not drive yourself to the clinic or hospital. AR symptoms can include: Angina or pain that occurs in the neck, arm, jaw, or in the upper middle back. Profuse sweating without cause. Shortness of breath or difficulty breathing without cause. Unexplained nausea or epigastric pain that feels like heartburn. Document Released: 09/25/2012 Document Reviewed: 09/25/2012 [facility] Patient Information 2015 [employer]. This information is not intended to replace [...] vitamins, herbs, eye drops, creams , and qtai-hsc-nphsyaw medicines. Previous problems you or members of [...] 07/01/2001 Document Revised: 07/09/2014 Document Reviewed: 03/11/2014 [facility] Patient Information 2015 [employer]. This information is not intended to replace [...] lead to a heart attack (myocardial infarction, AR). An AR can lead to heart failure, cardiogenic shock, or sudden cardiac . CAD can cause an AR through: Plaque buildup that can severely narrow [...] coronary artery is narrowed or blocked, an AR can occur. AR symptoms can include: Chest pain (agina). Angina [...] in the detection of a sudden (acute) AR or as a marker for a previous AR. Depending on which heart (coronary) artery ma y be blocked, an ECG may not fruit picker an AR pattern. Exercise stress test. A stress test [...] anti- platelet medicine can result in an AR. Talk with y our caregiver before stopping medicine or if you cannot afford your medicine. If the coronary arteries are significantly blocked, surgery may be needed. This can include: Percutaneous coronary intervention (PCI) with or without stent placement. Coronary artery bypass graft surgery (CABG). SEEK IMMEDIATE MEDICAL CARE IF: You develop AR symptoms. This is a medical emergency. Get help at once. Call your local emergency service (911 in the [place] immediately. Do not drive yourself to the clinic or hospital. AR symptoms can include: Angina or pain that occurs in the neck, arm, jaw, or in the upper middle back. Profuse sweating without cause. Shortness of breath or difficulty breathing without cause. Unexplained nausea or epigastric pain that feels like heartburn. Document Released: 09/25/2012 Document Reviewed: 09/25/2012 [employer] Patient Information 2014 [employer]. This information is not intended to replace [...] months. Ordered: Office Visit Level 4 Est 16567 CAD (coronary artery disease) No signs of ischemia. Dictations reviewed no changes recommended. He'll have his treadmill in February as mentioned above. Follow-up here in 6 months. Ordered: pneumococcal 13-valent conjugate vaccine, 0.5 mL, IntraMuscular, Once, First Dose: 02/06/15 16:00:00 CDT, Stop Date: 02/06/15 16:00:00 CDT, Form: Injection Office Visit Level 4 Est 26915 Essential hypertension Pressure appears to be adequately controlled. No change in current treatment is recommended. Follow-up in 6 months. Ordered: Office Visit Level 4 Est 12561 Pure hypercholesterolemia Recent laboratory studies are reviewed. Change in current treatment is recommended. Follow-up in 6 months. Ordered: Office Visit Level 4 Est 74891
--- OUTSIDE RECORDS SUMMARY | 2017-06-19 08:53 | External Medical Summary | Referral Summary ---
:1935 Author Organization [facility] [place] [address] Care Team Providers Name Role Phone Jonathan Milligan Primary Care Physician Encounter VC Date(s): 02/06/15 - 02/06/15 [facility] [place] [address]- Discharge Diagnosis: CAD (coronary artery disease) Discharge [...] Refill(s), eRx: [facility] #[id number], [address]ER TONGUE NEEDED FOR CHEST [...] 5 Refill(s), eRx: [facility]#[id number], TAKE ONE TABLET BY MOUTH AT BEDTIME Start Date: 02/17/15 Status: Orderedtriamcinolone 0.025% topical ointment 1 ofelia, Topical, BID, # 15 g, 0 Refill(s), Pharmacy: [facility] #[id number] Start Date: 10/25/14 Stop Date: 10/29/14 Status: Orderedwarfarin 2 mg oral tablet See Instructions, TAKE THREE TABLETS BY MOUTH ONCE A DAY OR DIRECTED., # 100 tabs, 2 Refill(s), eRx: [facility] #[id number], TAKE THREE TABLETS BY MOUTH ONCE A [...] lead to a heart attack (myocardial infarction, DE). An DE can lead to heart failure, cardiogenic shock, or sudden cardiac . CAD can cause an DE through: Plaque buildup that can severely narrow [...] coronary artery is narrowed or blocked, an DE can occur. DE symptoms can include: Chest pain (agina). Angina [...] in the detection of a sudden (acute) DE or as a marker for a previous DE. Depending on which heart (coronary) artery ma y be blocked, an ECG may not pickers material handlers an DE pattern. Exercise stress test. A stress test [...] anti- platelet medicine can result in an DE. Talk with y our caregiver before stopping medicine or if you cannot afford your medicine. If the coronary arteries are significantly blocked, surgery may be needed. This can include: Percutaneous coronary intervention (PCI) with or without stent placement. Coronary artery bypass graft surgery (CABG). SEEK IMMEDIATE MEDICAL CARE IF: You develop DE symptoms. This is a medical emergency. Get help at once. Call your local emergency service (911 in the [place] immediately. Do not drive yourself to the clinic or hospital. DE symptoms can include: Angina or pain that occurs in the neck, arm, jaw, or in the upper middle back. Profuse sweating without cause. Shortness of breath or difficulty breathing without cause. Unexplained nausea or epigastric pain that feels like heartburn. Document Released: 09/25/2012 Document Reviewed: 09/25/2012 [facility] Patient Information 2015 [employer]. This information is not intended to replace [...] lead to a heart attack (myocardial infarction, DE). An DE can lead to heart failure, cardiogenic shock, or sudden cardiac . CAD can cause an DE through: Plaque buildup that can severely narrow [...] coronary artery is narrowed or blocked, an DE can occur. DE symptoms can include: Chest pain (agina). Angina [...] in the detection of a sudden (acute) DE or as a marker for a previous DE. Depending on which heart (coronary) artery ma y be blocked, an ECG may not pickers material handlers an DE pattern. Exercise stress test. A stress test [...] anti- platelet medicine can result in an DE. Talk with y our caregiver before stopping medicine or if you cannot afford your medicine. If the coronary arteries are significantly blocked, surgery may be needed. This can include: Percutaneous coronary intervention (PCI) with or without stent placement. Coronary artery bypass graft surgery (CABG). SEEK IMMEDIATE MEDICAL CARE IF: You develop DE symptoms. This is a medical emergency. Get help at once. Call your local emergency service (911 in the [place] immediately. Do not drive yourself to the clinic or hospital. DE symptoms can include: Angina or pain that occurs in the neck, arm, jaw, or in the upper middle back. Profuse sweating without cause. Shortness of breath or difficulty breathing without cause. Unexplained nausea or epigastric pain that feels like heartburn. Document Released: 09/25/2012 Document Reviewed: 09/25/2012 [employer] Patient Information 2015 [employer]. This information is not intended to replace [...] lead to a heart attack (myocardial infarction, DE). An DE can lead to heart failure, cardiogenic shock, or sudden cardiac . CAD can cause an DE through: Plaque buildup that can severely narrow [...] coronary artery is narrowed or blocked, an DE can occur. DE symptoms can include: Chest pain (agina). Angina [...] in the detection of a sudden (acute) DE or as a marker for a previous DE. Depending on which heart (coronary) artery ma y be blocked, an ECG may not pickers material handlers an DE pattern. Exercise stress test. A stress test [...] anti- platelet medicine can result in an DE. Talk with y our caregiver before stopping medicine or if you cannot afford your medicine. If the coronary arteries are significantly blocked, surgery may be needed. This can include: Percutaneous coronary intervention (PCI) with or without stent placement. Coronary artery bypass graft surgery (CABG). SEEK IMMEDIATE MEDICAL CARE IF: You develop DE symptoms. This is a medical emergency. Get help at once. Call your local emergency service (911 in the [place] immediately. Do not drive yourself to the clinic or hospital. DE symptoms can include: Angina or pain that occurs in the neck, arm, jaw, or in the upper middle back. Profuse sweating without cause. Shortness of breath or difficulty breathing without cause. Unexplained nausea or epigastric pain that feels like heartburn. Document Released: 09/25/2012 Document Reviewed: 09/25/2012 [facility] Patient Information 2015 [employer]. This information is not intended to replace [...] vitamins, herbs, eye drops, creams , and zhol-vsc-kfmqeny medicines. Previous problems you or members of [...] 07/01/2001 Document Revised: 07/09/2014 Document Reviewed: 03/11/2014 [facility] Patient Information 2015 [employer]. This information is not intended to replace [...] lead to a heart attack (myocardial infarction, DE). An DE can lead to heart failure, cardiogenic shock, or sudden cardiac . CAD can cause an DE through: Plaque buildup that can severely narrow [...] coronary artery is narrowed or blocked, an DE can occur. DE symptoms can include: Chest pain (agina). Angina [...] in the detection of a sudden (acute) DE or as a marker for a previous DE. Depending on which heart (coronary) artery ma y be blocked, an ECG may not pickers material handlers an DE pattern. Exercise stress test. A stress test [...] anti- platelet medicine can result in an DE. Talk with y our caregiver before stopping medicine or if you cannot afford your medicine. If the coronary arteries are significantly blocked, surgery may be needed. This can include: Percutaneous coronary intervention (PCI) with or without stent placement. Coronary artery bypass graft surgery (CABG). SEEK IMMEDIATE MEDICAL CARE IF: You develop DE symptoms. This is a medical emergency. Get help at once. Call your local emergency service (911 in the [place] immediately. Do not drive yourself to the clinic or hospital. DE symptoms can include: Angina or pain that occurs in the neck, arm, jaw, or in the upper middle back. Profuse sweating without cause. Shortness of breath or difficulty breathing without cause. Unexplained nausea or epigastric pain that feels like heartburn. Document Released: 09/25/2012 Document Reviewed: 09/25/2012 [facility] Patient Information 2015 [employer]. This information is not intended to replace [...] months. Ordered: Office Visit Level 4 Est 41466 CAD (coronary artery disease) No signs of ischemia. Dictations reviewed no changes recommended. He'll have his treadmill in February as mentioned above. Follow-up here in 6 months. Ordered: pneumococcal 13-valent conjugate vaccine, 0.5 mL, IntraMuscular, Once, First Dose: 02/06/15 16:00:00 CDT, Stop Date: 02/06/15 16:00:00 CDT, Form: Injection Office Visit Level 4 Est 63884 Essential hypertension Pressure appears to be adequately controlled. No change in current treatment is recommended. Follow-up in 6 months. Ordered: Office Visit Level 4 Est 18757 Pure hypercholesterolemia Recent laboratory studies are reviewed. Change in current treatment is recommended. Follow-up in 6 months. Ordered: Office Visit Level 4 Est 95619
--- OUTSIDE RECORDS SUMMARY | 2017-06-19 08:53 | External Medical Summary | Referral Summary ---
:1935 Author Organization [facility] [address] [place] [address] Care Team Providers Name Role Phone Jonathan Milligan Primary Care Physician Encounter [facility] Date(s): 02/06/15 - 02/06/15 [facility] [address] [place] [id number]- Discharge Diagnosis: CAD (coronary artery disease) Discharge [...] 911., # 25 tabs, 1 Refill(s), eRx: [facility] #[id number], PLACE 1 UNDER TONGUE NEEDED FOR CHEST PAIN.MAY REPEAT IN 5 MIN. X3 TOTAL.NO RE... Start Date: 01/02/15 Status: OrderedRefresh Plus ophthalmic solution 1 drops, Eye-Both, BID, as needed for dry eyes, # 30 mL, 0 Refill(s) Start Date: 02/01/14 Status: Orderedsimvastatin 20 mg oral tablet See Instructions, TAKE ONE TABLET BY MOUTH AT BEDTIME, # 30 tabs, 5 Refill(s), eRx: [facility]#[id number], TAKE ONE TABLET BY MOUTH AT BEDTIME Start Date: 02/17/15 Status: Orderedtriamcinolone 0.025% topical ointment 1 ofelia, Topical, BID, # 15 g, 0 Refill(s), Pharmacy: [facility] #[id number] Start Date: 10/25/14 Stop Date: 10/29/14 Status: Orderedwarfarin 2 mg oral tablet See Instructions, TAKE THREE TABLETS BY MOUTH ONCE A DAY OR DIRECTED., # 100 tabs, 2 Refill(s), eRx: [facility] #[id number], TAKE THREE TABLETS BY MOUTH ONCE A [...] lead to a heart attack (myocardial infarction, MO). An MO can lead to heart failure, cardiogenic shock, or sudden cardiac . CAD can cause an MO through: Plaque buildup that can severely narrow [...] coronary artery is narrowed or blocked, an MO can occur. MO symptoms can include: Chest pain (agina). Angina [...] in the detection of a sudden (acute) MO or as a marker for a previous MO. Depending on which heart (coronary) artery ma y be blocked, an ECG may not picker packer an MO pattern. Exercise stress test. A stress test [...] anti- platelet medicine can result in an MO. Talk with y our caregiver before stopping medicine or if you cannot afford your medicine. If the coronary arteries are significantly blocked, surgery may be needed. This can include: Percutaneous coronary intervention (PCI) with or without stent placement. Coronary artery bypass graft surgery (CABG). SEEK IMMEDIATE MEDICAL CARE IF: You develop MO symptoms. This is a medical emergency. Get help at once. Call your local emergency service (911 in the [place] immediately. Do not drive yourself to the clinic or hospital. MO symptoms can include: Angina or pain that occurs in the neck, arm, jaw, or in the upper middle back. Profuse sweating without cause. Shortness of breath or difficulty breathing without cause. Unexplained nausea or epigastric pain that feels like heartburn. Document Released: 09/25/2012 Document Reviewed: 09/25/2012 [facility] Patient Information 2015 [employer]. This information is not intended to replace [...] lead to a heart attack (myocardial infarction, MO). An MO can lead to heart failure, cardiogenic shock, or sudden cardiac . CAD can cause an MO through: Plaque buildup that can severely narrow [...] coronary artery is narrowed or blocked, an MO can occur. MO symptoms can include: Chest pain (agina). Angina [...] in the detection of a sudden (acute) MO or as a marker for a previous MO. Depending on which heart (coronary) artery ma y be blocked, an ECG may not picker packer an MO pattern. Exercise stress test. A stress test [...] anti- platelet medicine can result in an MO. Talk with y our caregiver before stopping medicine or if you cannot afford your medicine. If the coronary arteries are significantly blocked, surgery may be needed. This can include: Percutaneous coronary intervention (PCI) with or without stent placement. Coronary artery bypass graft surgery (CABG). SEEK IMMEDIATE MEDICAL CARE IF: You develop MO symptoms. This is a medical emergency. Get help at once. Call your local emergency service (911 in the [place] immediately. Do not drive yourself to the clinic or hospital. MO symptoms can include: Angina or pain that occurs in the neck, arm, jaw, or in the upper middle back. Profuse sweating without cause. Shortness of breath or difficulty breathing without cause. Unexplained nausea or epigastric pain that feels like heartburn. Document Released: 09/25/2012 Document Reviewed: 09/25/2012 [employer] Patient Information 2015 [employer]. This information is not intended to replace [...] lead to a heart attack (myocardial infarction, MO). An MO can lead to heart failure, cardiogenic shock, or sudden cardiac . CAD can cause an MO through: Plaque buildup that can severely narrow [...] coronary artery is narrowed or blocked, an MO can occur. MO symptoms can include: Chest pain (agina). Angina [...] in the detection of a sudden (acute) MO or as a marker for a previous MO. Depending on which heart (coronary) artery ma y be blocked, an ECG may not picker packer an MO pattern. Exercise stress test. A stress test [...] anti- platelet medicine can result in an MO. Talk with y our caregiver before stopping medicine or if you cannot afford your medicine. If the coronary arteries are significantly blocked, surgery may be needed. This can include: Percutaneous coronary intervention (PCI) with or without stent placement. Coronary artery bypass graft surgery (CABG). SEEK IMMEDIATE MEDICAL CARE IF: You develop MO symptoms. This is a medical emergency. Get help at once. Call your local emergency service (911 in the [place] immediately. Do not drive yourself to the clinic or hospital. MO symptoms can include: Angina or pain that occurs in the neck, arm, jaw, or in the upper middle back. Profuse sweating without cause. Shortness of breath or difficulty breathing without cause. Unexplained nausea or epigastric pain that feels like heartburn. Document Released: 09/25/2012 Document Reviewed: 09/25/2012 [facility] Patient Information 2015 [employer]. This information is not intended to replace [...] vitamins, herbs, eye drops, creams , and auhe-syp-tfozdha medicines. Previous problems you or members of [...] Revised: 07/09/2014 Document Reviewed: 03/11/2014 [facility] Patient Information 2015 [employer]. This information is not intended to replace [...] lead to a heart attack (myocardial infarction, MO). An MO can lead to heart failure, cardiogenic shock, or sudden cardiac . CAD can cause an MO through: Plaque buildup that can severely narrow [...] coronary artery is narrowed or blocked, an MO can occur. MO symptoms can include: Chest pain (agina). Angina [...] in the detection of a sudden (acute) MO or as a marker for a previous MO. Depending on which heart (coronary) artery ma y be blocked, an ECG may not picker packer an MO pattern. Exercise stress test. A stress test [...] anti- platelet medicine can result in an MO. Talk with y our caregiver before stopping medicine or if you cannot afford your medicine. If the coronary arteries are significantly blocked, surgery may be needed. This can include: Percutaneous coronary intervention (PCI) with or without stent placement. Coronary artery bypass graft surgery (CABG). SEEK IMMEDIATE MEDICAL CARE IF: You develop MO symptoms. This is a medical emergency. Get help at once. Call your local emergency service (911 in the [place] immediately. Do not drive yourself to the clinic or hospital. MO symptoms can include: Angina or pain that occurs in the neck, arm, jaw, or in the upper middle back. Profuse sweating without cause. Shortness of breath or difficulty breathing without cause. Unexplained nausea or epigastric pain that feels like heartburn. Document Released: 09/25/2012 Document Reviewed: 09/25/2012 [facility] Patient Information 2015 [employer]. This information is not intended to replace [...] months. Ordered: Office Visit Level 4 Est 99353 CAD (coronary artery disease) No signs of ischemia. Dictations reviewed no changes recommended. He'll have his treadmill in February as mentioned above. Follow-up here in 6 months. Ordered: pneumococcal 13-valent conjugate vaccine, 0.5 mL, IntraMuscular, Once, First Dose: 02/06/15 16:00:00 CDT, Stop Date: 02/06/15 16:00:00 CDT, Form: Injection Office Visit Level 4 Est 47380 Essential hypertension Pressure appears to be adequately controlled. No change in current treatment is recommended. Follow-up in 6 months. Ordered: Office Visit Level 4 Est 33974 Pure hypercholesterolemia Recent laboratory studies are reviewed. Change in current treatment is recommended. Follow-up in 6 months. Ordered: Office Visit Level 4 Est 71991
--- OUTSIDE RECORDS SUMMARY | 2017-06-19 08:53 | External Medical Summary | Referral Summary ---
:1935 Author Care Team Providers Name Role Phone Jonathan Milligan Primary Care Physician Encounter [facility] [id number] Date(s): 11/04/14 - 11/04/14 [facility], [place], Family [address] [place] [address] Discharge Diagnosis: CAD (coronary artery disease) Discharge Diagnosis: High cholesterol Discharge Diagnosis: Essential hypertension Discharge Diagnosis: Subconjunctival hematoma Discharge Diagnosis: Atrial fibrillation Discharge Disposition: Home or Self Care Attending Physician: Jonathan Milligan MD Admitting Physician: Jonathan Milligan MD Vital Signs Most recent to oldest [Reference Range]: 1 Temperature Tympanic [36.6-38.1 degC] 35.8 degC *LOW* (11/04/14 3:51 PM) Peripheral Pulse Rate [60-100 bpm] 72 bpm (11/04/14 3:51 PM) Respiratory Rate [14-20 br/min] 22 br/min *HI* (11/04/14 3:51 PM) Blood Pressure [90-140/60-90 mmHg] 130/74 mmHg (11/04/14 3:51 PM) Problem List Condition Effective Dates Status [...] 02/01/14 Status: Orderednitroglycerin 0.4 mg sublingual tablet 1 tabs, SubLingual, q5min, as needed for chest pain, # 100 tabs, 0 Refill(s) Start Date: 02/01/14 Status: OrderedRefresh Plus ophthalmic solution 1 drops, Eye-Both, BID, as needed for dry eyes, # 30 mL, 0 Refill(s) Start Date: 02/01/14 Status: Orderedsimvastatin 20 mg oral tablet 1 tabs, Oral, Bedtime (once a day), # 30 tabs, 5 Refill(s), Pharmacy: [facility] #[id number], 1 tabs Oral Bedtime (once a day) Start Date: 08/13/14 Status: Orderedtriamcinolone 0.025% topical ointment 1 ofelia, Topical, BID, # 15 g, 0 Refill(s), Pharmacy: [facility] #[id number] Start Date: 10/25/14 Stop Date: 10/29/14 Status: Orderedwarfarin 2 mg oral tablet See Instructions, TAKE THREE TABLETS BY MOUTH ONCE A DAY OR DIRECTED., # 100 tabs, 2 Refill(s), eRx: [facility] #[id number], TAKE THREE TABLETS BY MOUTH ONCE A DAY OR DIRECTED. Special Instructions: TAKE THREE TABLETS BY MOUTH ONCE A DAY OR DIRECTED. Start Date: 10/10/14 Status: Ordered Results No data available for this section Immunizations Vaccine Date Refusal Reason influenza virus vaccine, inactivated 05/08/14 influenza virus vaccine, live 05/16/13 influenza virus vaccine, live 04/19/12 pneumococcal 23-polyvalent vaccine 11/09/06 tetanus-diphth toxoids (Td) adult/adol 12/15/11 zoster vaccine live 02/09/13 Procedures Procedure Date Related Diagnosis Body Site Colonoscopy1 06/04/10 1Repeat in 5 years Social History Social History Type Response Smoking Status Never smoker Assessment and Plan Extracted from: Title: Ambulatory Patient Education Author: Jonathan Milligan MD Date: 11/04 Family Medicine Atrial Fibrillation Atrial fibrillation is a type of irregular heart rhythm (arrhythmia ). During atrial fibrillation, the upper chambers of the heart (atria ) quiver continuously in a chaotic pattern. This causes an irregular and often rapid heart rate. Atrial fibrillation is the result of the heart becoming overloaded with disorganized signals that tell it to beat. These signals are normally released one at a time by a part of the right atrium called the sinoatrial node. They then travel from the atria to the lower chambers of the heart (ventricles ), causing the atria and ventricles to contract and pump blood as they pass. In atrial fibrillation, p arts of the atria outside of the sinoatrial node also release these signals. This results in two problems. First, the atria receive so many signals that they do not have time to fully contract. Second, the ventricles, which can only receive one signal at a time, beat irregularly and out of rhythm with the atria. There are three types of atrial fibrillation: ParoxysmalParoxysmal atrial fibrillation starts suddenly and stops on its own within a week. PersistentPersistent atrial fibrillation lasts for more than a week. It may stop on its own or with treatment. PermanentPermanent atrial fibrillation does not go away. Episodes of atrial fibrillation may lead to permanent atrial fibrillation. Atrial fibrillation can prevent your heart from pumping blood normally. It increases your risk of stroke and can lead to heart failure. CAUSES Heart conditions, including a heart attack, heart failure, coronary artery disease, and heart valve conditions. Inflammation of the sac that surrounds the heart (pericarditis ). Blockage of an artery in the lungs (pulmonary embolism ). Pneumonia or other infections. Chronic lung disease. Thyroid problems, especially if the thyroid is overactive ( hyperthyroidism ). Caffeine, excessive alcohol use, and use of some illegal drugs. Use of some medications, including certain decongestants and diet pills. Heart surgery. defects. Sometimes, no cause can be found. When this happens, the atrial fibrillation is called lone atrial fibrillation. The risk of complications from atrial fibrillation increases if you have lone atrial fibrillation and you are age 60 years or older. RISK FACTORS Heart failure. Coronary artery disease Diabetes mellitus. High blood pressure (hypertension ). Obesity. Other arrhythmias. Increased age. SYMPTOMS A feeling that your heart is beating rapidly or irregularly. A feeling of discomfort or pain in your chest. Shortness of breath. Sudden lightheadedness or weakness. Getting tired easily when exercising. Urinating more often than normal (mainly when atrial fibrillation first begins). In paroxysmal atrial fibrillation, symptoms may start and suddenly stop. DIAGNOSIS Your caregiver may be able to detect atrial fibrillation when taking your pulse. Usually, testing is needed to diagnosis atrial fibrillation. Tests may include: Electrocardiography. During this test, the electrical impulses of your heart are recorded while you are lying down. Echocardiography. During echocardiography, sound waves are used to evaluate how blood flows through your heart. Stress test. There is more than one type of stress test. If a stress test is needed, ask your caregiver about which type is best for you. Chest X-ray exam. Blood tests. Computed tomography (CT). TREATMENT Treating any underlying conditions. For example, if you have an overactive thyroid, treating the condition may correct atrial fibrillation. Medication. Medications may be given to control a rapid heart rate or to prevent blood clots, heart failure, or a stroke. Procedure to correct the rhythm of the heart: Electrical cardioversion. During electrical cardioversion, a controlled, low-energy shock is delivered to the heart through your skin. If you have chest pain, very low pressure blood pressure, or sudden heart failure, this procedure may need to be done as an emergency. Catheter ablation. During this procedure, heart tissues that send the signals that cause atrial fibrillation are destroyed. Maze or minimaze procedure. During this surgery, thin lines of heart tissue that carry the abnormal signals are destroyed. The maze procedure is an open-heart surgery. The minimaze procedure is a minimally invasive surgery. This means that small cuts are made to access the heart instead of a large opening. Pulmonary venous isolation. During this surgery, tissue around the veins that carry blood from the lungs (pulmonary veins) is destroyed. This tissue is thought to carry the abnormal signals. HOME CARE INSTRUCTIONS Take medications as directed by your caregiver. Only take medications that your caregiver approves. Some medications can make atrial fibrillation worse or recur. If blood thinners were prescribed by your caregiver, take them exactly as directed. Too much can cause bleeding. Too little and you will not have the needed protection against stroke and other problems. Perform blood tests at home if directed by your caregiver. Perform blood tests exactly as directed. Quit smoking if you smoke. Do not drink alcohol. Do not drink caffeinated beverages such as coffee, soda, and some teas. You may drink decaffeinated coffee, soda, or tea. Maintain a healthy weight. Do not use diet pills unless your caregiver approves. They may make heart problems worse. Follow diet instructions as directed by your caregiver. Exercise regularly as directed by your caregiver. Keep all follow-up appointments. PREVENTION The following substances can cause atrial fibrillation to recur: Caffeinated beverages. Alcohol. Certain medications, especially those used for breathing problems. Certain herbs and herbal medications, such as those containing ephedra or ginseng. Illegal drugs such as cocaine and amphetamines. Sometimes medications are given to prevent atrial fibrillation from recurring. Proper treatment of any underlying condition is also important in helping prevent recurrence. SEEK MEDICAL CARE IF: You notice a change in the rate, rhythm, or strength of your heartbeat. You suddenly begin urinating more frequently. You tire more easily when exerting yourself or exercising. SEEK IMMEDIATE MEDICAL CARE IF: You develop chest pain, abdominal pain, sweating, or weakness. You feel sick to your stomach (nauseous ). You develop shortness of breath. You suddenly develop swollen feet and ankles. You feel dizzy. You face or limbs feel numb or weak. There is a change in your vision or speech. MAKE SURE YOU: Understand these instructions. Will watch your condition. Will get help right away if you are not doing well or get worse. Document Released: 07/04/2006 Document Revised: 10/29/2013 Document Reviewed: 08/14/2013 [facility] Patient Information 2014 [employer]. No follow up information was provided. Extracted from: Title: Office Visit Note Author: Jonathan Milligan MD Date: 11/04/14 Assessment/Plan Atrial fibrillation He is on chronic anticoagulation therapy. His INR was elevated. Repeat an INR Tuesday and see how it looks. Ordered: Office Visit Level 4 Est 63198 CAD (coronary artery disease) Continue follow-up with Dr. Brody with his recent episodes of some chest soreness. Ordered: Office Visit Level 4 Est 77757 Essential hypertension Blood pressure looks good here today. They do have a monitor at home now and will check it daily over the next week and let me know how those readings are going. No change in current treatment plan for the time being. Ordered: Office Visit Level 4 Est 28834 High cholesterol Stable no change in current treatment. Ordered: Office Visit Level 4 Est 68319 Subconjunctival hematoma He is scheduled for a steroid injection into that right eye on Tuesday with Dr. orr. We'll call his office and see if he wants to proceed with that or not. Ordered: Office Visit Level 4 Est 11042
--- OUTSIDE RECORDS SUMMARY | 2017-06-19 08:53 | External Medical Summary | Referral Summary ---
:1935 Author Organization [facility] [place] [address] Care Team Providers Name Role Phone Jonathan Milligan Primary Care Physician Encounter VC Date(s): 02/06/15 - 02/06/15 [facility] [place] [address]- Discharge Diagnosis: CAD (coronary artery disease) Discharge [...] 911., # 25 tabs, 1 Refill(s), eRx: [facility] #[id number], PLACE 1 UNDER TONGUE NEEDED FOR CHEST PAIN.MAY REPEAT IN 5 MIN. X3 TOTAL.NO RE... Start Date: 01/02/15 Status: OrderedRefresh Plus ophthalmic solution 1 drops, Eye-Both, BID, as needed for dry eyes, # 30 mL, 0 Refill(s) Start Date: 02/01/14 Status: Orderedsimvastatin 20 mg oral tablet See Instructions, TAKE ONE TABLET BY MOUTH AT BEDTIME, # 30 tabs, 5 Refill(s), eRx: [facility]#[id number], TAKE ONE TABLET BY MOUTH AT BEDTIME Start Date: 02/17/15 Status: Orderedtriamcinolone 0.025% topical ointment 1 ofelia, Topical, BID, # 15 g, 0 Refill(s), Pharmacy: [facility] #[id number] Start Date: 10/25/14 Stop Date: 10/29/14 Status: Orderedwarfarin 2 mg oral tablet See Instructions, TAKE THREE TABLETS BY MOUTH ONCE A DAY OR DIRECTED., # 100 tabs, 2 Refill(s), eRx: [facility] #[id number], TAKE THREE TABLETS BY MOUTH ONCE A [...] lead to a heart attack (myocardial infarction, UT). An UT can lead to heart failure, cardiogenic shock, or sudden cardiac . CAD can cause an UT through: Plaque buildup that can severely narrow [...] coronary artery is narrowed or blocked, an UT can occur. UT symptoms can include: Chest pain (agina). Angina [...] in the detection of a sudden (acute) UT or as a marker for a previous UT. Depending on which heart (coronary) artery ma y be blocked, an ECG may not pickers material handlers an UT pattern. Exercise stress test. A stress test [...] anti- platelet medicine can result in an UT. Talk with y our caregiver before stopping medicine or if you cannot afford your medicine. If the coronary arteries are significantly blocked, surgery may be needed. This can include: Percutaneous coronary intervention (PCI) with or without stent placement. Coronary artery bypass graft surgery (CABG). SEEK IMMEDIATE MEDICAL CARE IF: You develop UT symptoms. This is a medical emergency. Get help at once. Call your local emergency service (911 in the [place] immediately. Do not drive yourself to the clinic or hospital. UT symptoms can include: Angina or pain that occurs in the neck, arm, jaw, or in the upper middle back. Profuse sweating without cause. Shortness of breath or difficulty breathing without cause. Unexplained nausea or epigastric pain that feels like heartburn. Document Released: 09/25/2012 Document Reviewed: 09/25/2012 [facility] Patient Information 2015 [employer]. This information is not intended to replace [...] lead to a heart attack (myocardial infarction, UT). An UT can lead to heart failure, cardiogenic shock, or sudden cardiac . CAD can cause an UT through: Plaque buildup that can severely narrow [...] coronary artery is narrowed or blocked, an UT can occur. UT symptoms can include: Chest pain (agina). Angina [...] in the detection of a sudden (acute) UT or as a marker for a previous UT. Depending on which heart (coronary) artery ma y be blocked, an ECG may not pickers material handlers an UT pattern. Exercise stress test. A stress test [...] anti- platelet medicine can result in an UT. Talk with y our caregiver before stopping medicine or if you cannot afford your medicine. If the coronary arteries are significantly blocked, surgery may be needed. This can include: Percutaneous coronary intervention (PCI) with or without stent placement. Coronary artery bypass graft surgery (CABG). SEEK IMMEDIATE MEDICAL CARE IF: You develop UT symptoms. This is a medical emergency. Get help at once. Call your local emergency service (911 in the [place] immediately. Do not drive yourself to the clinic or hospital. UT symptoms can include: Angina or pain that occurs in the neck, arm, jaw, or in the upper middle back. Profuse sweating without cause. Shortness of breath or difficulty breathing without cause. Unexplained nausea or epigastric pain that feels like heartburn. Document Released: 09/25/2012 Document Reviewed: 09/25/2012 [employer] Patient Information 2015 [employer]. This information is not intended to replace [...] lead to a heart attack (myocardial infarction, UT). An UT can lead to heart failure, cardiogenic shock, or sudden cardiac . CAD can cause an UT through: Plaque buildup that can severely narrow [...] coronary artery is narrowed or blocked, an UT can occur. UT symptoms can include: Chest pain (agina). Angina [...] in the detection of a sudden (acute) UT or as a marker for a previous UT. Depending on which heart (coronary) artery ma y be blocked, an ECG may not pickers material handlers an UT pattern. Exercise stress test. A stress test [...] anti- platelet medicine can result in an UT. Talk with y our caregiver before stopping medicine or if you cannot afford your medicine. If the coronary arteries are significantly blocked, surgery may be needed. This can include: Percutaneous coronary intervention (PCI) with or without stent placement. Coronary artery bypass graft surgery (CABG). SEEK IMMEDIATE MEDICAL CARE IF: You develop UT symptoms. This is a medical emergency. Get help at once. Call your local emergency service (911 in the [place] immediately. Do not drive yourself to the clinic or hospital. UT symptoms can include: Angina or pain that occurs in the neck, arm, jaw, or in the upper middle back. Profuse sweating without cause. Shortness of breath or difficulty breathing without cause. Unexplained nausea or epigastric pain that feels like heartburn. Document Released: 09/25/2012 Document Reviewed: 09/25/2012 [facility] Patient Information 2015 [employer]. This information is not intended to replace [...] vitamins, herbs, eye drops, creams , and hvuc-jue-qjuoamc medicines. Previous problems you or members of [...] 07/01/2001 Document Revised: 07/09/2014 Document Reviewed: 03/11/2014 [facility] Patient Information 2015 [employer]. This information is not intended to replace [...] lead to a heart attack (myocardial infarction, UT). An UT can lead to heart failure, cardiogenic shock, or sudden cardiac . CAD can cause an UT through: Plaque buildup that can severely narrow [...] coronary artery is narrowed or blocked, an UT can occur. UT symptoms can include: Chest pain (agina). Angina [...] in the detection of a sudden (acute) UT or as a marker for a previous UT. Depending on which heart (coronary) artery ma y be blocked, an ECG may not pickers material handlers an UT pattern. Exercise stress test. A stress test [...] anti- platelet medicine can result in an UT. Talk with y our caregiver before stopping medicine or if you cannot afford your medicine. If the coronary arteries are significantly blocked, surgery may be needed. This can include: Percutaneous coronary intervention (PCI) with or without stent placement. Coronary artery bypass graft surgery (CABG). SEEK IMMEDIATE MEDICAL CARE IF: You develop UT symptoms. This is a medical emergency. Get help at once. Call your local emergency service (911 in the [place] immediately. Do not drive yourself to the clinic or hospital. UT symptoms can include: Angina or pain that occurs in the neck, arm, jaw, or in the upper middle back. Profuse sweating without cause. Shortness of breath or difficulty breathing without cause. Unexplained nausea or epigastric pain that feels like heartburn. Document Released: 09/25/2012 Document Reviewed: 09/25/2012 [facility] Patient Information 2015 [employer]. This information is not intended to replace [...] months. Ordered: Office Visit Level 4 Est 43265 CAD (coronary artery disease) No signs of ischemia. Dictations reviewed no changes recommended. He'll have his treadmill in February as mentioned above. Follow-up here in 6 months. Ordered: pneumococcal 13-valent conjugate vaccine, 0.5 mL, IntraMuscular, Once, First Dose: 02/06/15 16:00:00 CDT, Stop Date: 02/06/15 16:00:00 CDT, Form: Injection Office Visit Level 4 Est 01536 Essential hypertension Pressure appears to be adequately controlled. No change in current treatment is recommended. Follow-up in 6 months. Ordered: Office Visit Level 4 Est 47271 Pure hypercholesterolemia Recent laboratory studies are reviewed. Change in current treatment is recommended. Follow-up in 6 months. Ordered: Office Visit Level 4 Est 65110
--- OUTSIDE RECORDS SUMMARY | 2017-06-19 08:53 | External Medical Summary | Referral Summary ---
:1935 Author Organization [facility] [place] [address] Care Team Providers Name Role Phone Jonathan Milligan Primary Care Physician Encounter VC Date(s): 11/07/15 - 11/07/15 [facility] [place] [phone]- Discharge Diagnosis: Essential hypertension Discharge Diagnosis: CAD (coronary artery disease) Discharge Diagnosis: High cholesterol Discharge Diagnosis: Atrial fibrillation Discharge Disposition: 01-Home or Self Care Attending Physician: Jonathan Milligan MD Admitting Physician: Jonathan Milligan MD Vital Signs Most recent to oldest [Reference Range]: 1 Temperature Tympanic [36.6-38.1 degC] 36.6 degC (11/07/15 1:33 PM) Peripheral Pulse Rate [60-100 bpm] 74 bpm (11/07/15 1:33 PM) Blood Pressure [90-140/60-90 mmHg] 164/72 mmHg *HI* (11/07/15 1:33 PM) Problem List Condition Effective Dates Status [...] 911., # 25 tabs, 1 Refill(s), eRx: [facility] #[id number], PLACE 1 UNDER TONGUE NEEDED FOR CHEST PAIN.MAY REPEAT IN 5 MIN. X3 TOTAL.NO RE... Start Date: 01/02/15 Status: OrderedRefresh Plus ophthalmic solution 1 drops, Eye-Both, BID, as needed for dry eyes, # 30 mL, 0 Refill(s) Start Date: 02/01/14 Status: Orderedsimvastatin 20 mg oral tablet See Instructions, TAKE ONE TABLET BY MOUTH AT BEDTIME, # 30 tabs, 5 Refill(s), eRx: [facility]#[id number], TAKE ONE TABLET BY MOUTH AT BEDTIME Start Date: 08/19/15 Status: Orderedwarfarin 2 mg oral tablet See Instructions, TAKE THREE TABLETS BY MOUTH ONCE A DAY OR DIRECTED., # 100 tabs, 3 Refill(s), eRx: [facility] #[id number], TAKE THREE TABLETS BY MOUTH ONCE A [...] Visit Note Author: Jonathan Milligan MD Date: 11/07/15 Assessment/Plan Atherosclerotic heart disease of [place] coronary artery without angina pectoris, CAD (coronary artery disease) Chronic stable with no signs of angina or ischemia. Continue current treatment plan without change. Ordered: Office Visit Level 4 Est 33538 Atrial fibrillation, Chronic atrial fibrillation He sounded to be in normal sinus todayno change in current treatment continue anticoagulation therapy. Ordered: Office Visit Level 4 Est 08659 Essential (primary) hypertension, Essential hypertension The pressure sounds like a running higher. I've asked him to check at least twice weekly over the next few weeks at homeand he may stop in here feet like. If they're consistently running over 140systolic he is to let me know and we'll make some adjustments in medication. Follow-up in 3 months otherwise. Ordered: Office Visit Level 4 Est 41453 High cholesterol, Pure hypercholesterolemia Chronic stable no change in current treatment. Ordered: Office Visit Level 4 Est 81618 Orders: PT
--- OUTSIDE RECORDS SUMMARY | 2017-06-19 08:54 | External Medical Summary | Referral Summary ---
:1935 Author Organization [facility] [place] [address] Care Team Providers Name Role Phone Jonathan Milligan Primary Care Physician Encounter VC Date(s): 05/27/16 - 05/27/16 [facility] [place] [address] [place] Discharge Diagnosis: CAD (coronary artery disease) Discharge Diagnosis: Constipation Discharge Diagnosis: Atrial fibrillation Discharge Diagnosis: Pure hypercholesterolemia Discharge Diagnosis: Essential hypertension Discharge Disposition: 01-Home or Self Care Attending Physician: Jonathan Milligan MD Admitting Physician: Jonathan Milligan MD Vital Signs Most recent to oldest [Reference Range]: 1 Temperature Tympanic [36.6-38.1 degC] 36.5 degC *LOW* (05/27/16 4:20 PM) Peripheral Pulse Rate [60-100 bpm] 80 bpm (05/27/16 4:20 PM) Respiratory Rate [14-20 br/min] 16 br/min (05/27/16 4:20 PM) Blood Pressure [90-140/60-90 mmHg] 166/82 mmHg *HI* (05/27/16 4:20 PM) Problem List Condition Effective Dates Status [...] Daily, # 30 tabs, 0 Refill(s), Pharmacy: [facility] # [id number], 1 tabs Oral Daily Start Date: 01/21/16 Status: Orderedmetoprolol tartrate 100 mg oral tablet 1 tabs, Oral, BID, # 180 tabs, 0 Refill(s) Start Date: 02/01/14 Status: Orderednitroglycerin 0.4 mg sublingual tablet See Instructions, PLACE 1 UNDER TONGUE NEEDED FOR CHEST PAIN.MAY REPEAT IN 5 MIN. X3 TOTAL.NO RELIEF-CALL 911., # 25 tabs, 1 Refill(s), eRx: [facility] #[id number], PLACE 1 UNDER TONGUE NEEDED FOR CHEST PAIN.MAY REPEAT IN 5 MIN. X3 TOTAL.NO RE... Start Date: 01/02/15 Status: OrderedRefresh Plus ophthalmic solution 1 drops, Eye-Both, BID, as needed for dry eyes, # 30 mL, 0 Refill(s) Start Date: 02/01/14 Status: Orderedsimvastatin 20 mg oral tablet See Instructions, TAKE ONE TABLET BY MOUTH AT BEDTIME, # 90 tabs, 3 Refill(s), Pharmacy: [facility] #[id number], TAKE ONE TABLET BY MOUTH AT BEDTIME Start Date: 02/17/16 Status: Orderedwarfarin 2 mg oral tablet See Instructions, TAKE THREE TABLETS BY MOUTH ONCE A DAY OR DIRECTED., # 100 tabs, 5 Refill(s), eRx: [facility] #[id number], TAKE THREE TABLETS BY MOUTH ONCE A DAY OR DIRECTED. Start Date: 12/17/15 Status: Ordered Results No data available for this section Immunizations Vaccine Date Refusal Reason influenza virus vaccine, inactivated 05/27/16 influenza virus vaccine, inactivated 07/21/15 influenza virus [...] Visit Note Author: Jonathan Milligan MD Date: 05/27/16 Assessment/Plan 1.Atrial fibrillation Chronic rate controlled on anticoagulation therapy. No change in current treatment is recommended. Routine follow-up in 3 months. Ordered: Office Visit Level 4 Est 41126 2.CAD (coronary artery disease) Chronic and stable no signs of angina no change in current treatment is recommended. Follow-up in 3 months. Ordered: Office Visit Level 4 Est 97712 3.Essential hypertension Blood pressures a little high here today. I' ve asked him to stop in in a couple weeks and have it rechecked again. If it continues to run high we'll make adjustments i n medication. He'll keep you postedif he has further questions or concerns. Recent laboratory studies were reviewed. Report card reviewed and provided. Follow-up in 3 months. Ordered: Office Visit Level 4 Est 82260 4.Pure hypercholesterolemia Recent laboratory studies reviewed and remain stable no change in current treatment recommended. Ordered: Office Visit Level 4 Est 36875 5.Constipation We discussed using some MiraLAX on a daily basis he'll try this and let me know how that's working. Ordered: Office Visit Level 4 Est 39762 Flu shot recommended and provided today.
--- OUTSIDE RECORDS SUMMARY | 2017-06-19 08:54 | External Medical Summary | Referral Summary ---
:1935 Author Organization [facility] [place] [address] Care Team Providers Name Role Phone Jonathan Milligan Primary Care Physician Encounter VC Date(s): 09/02/16 - 09/02/16 [facility] [place] [address]- Discharge Diagnosis: Essential hypertension Discharge Diagnosis: CAD (coronary artery disease) Discharge Diagnosis: Pure hypercholesterolemia Discharge Diagnosis: Chronic anticoagulation Discharge Diagnosis: Atrial fibrillation Discharge Disposition: 01-Home or Self Care Attending Physician: Jonathan Milligan MD Admitting Physician: Jonathan Milligan MD Vital Signs Most recent to oldest [Reference Range]: 1 Temperature Tympanic [36.6-38.1 degC] 36.6 degC (09/02/16 1:56 PM) Peripheral Pulse Rate [60-100 bpm] 76 bpm (09/02/16 1:56 PM) Respiratory Rate [14-20 br/min] 16 br/min (09/02/16 1:56 PM) Blood Pressure [90-140/60-90 mmHg] 152/84 mmHg *HI* (09/02/16 1:56 PM) Problem List Condition Effective Dates Status [...] Daily, # 30 tabs, 0 Refill(s), Pharmacy: [facility] # [id number], 1 tabs Oral Daily Start Date: 01/21/16 Status: Orderedmetoprolol tartrate 100 mg oral tablet 1 tabs, Oral, BID, # 180 tabs, 0 Refill(s) Start Date: 02/01/14 Status: Orderednitroglycerin 0.4 mg sublingual tablet See Instructions, PLACE 1 UNDER TONGUE NEEDED FOR CHEST PAIN.MAY REPEAT IN 5 MIN. X3 TOTAL.NO RELIEF-CALL 911., # 25 tabs, 1 Refill(s), eRx: [facility] #[id number], PLACE 1 UNDER TONGUE NEEDED FOR CHEST PAIN.MAY REPEAT IN 5 MIN. X3 TOTAL.NO RE... Start Date: 01/02/15 Status: OrderedRefresh Plus ophthalmic solution 1 drops, Eye-Both, BID, as needed for dry eyes, # 30 mL, 0 Refill(s) Start Date: 02/01/14 Status: Orderedsimvastatin 20 mg oral tablet See Instructions, TAKE ONE TABLET BY MOUTH AT BEDTIME, # 90 tabs, 3 Refill(s), Pharmacy: [facility] #[id number], TAKE ONE TABLET BY MOUTH AT BEDTIME Start Date: 09/02/16 Status: Orderedwarfarin 2 mg oral tablet See Instructions, TAKE THREE TABLETS BY MOUTH ONCE A DAY OR DIRECTED., # 100 tabs, 4 Refill(s), eRx: [facility] #[id number] Start Date: 08/20/16 Status: Ordered Results No data available for this section Immunizations Given and Recorded Vaccine Date Status Refusal Reason influenza virus vaccine, inactivated 05/27/16 Given influenza virus vaccine, inactivated 07/21/15 Given influenza virus vaccine, inactivated 05/08/14 Recorded influenza virus vaccine, live 05/16/13 Given influenza virus vaccine, live 04/19/12 Given pneumococcal 13-valent conjugate vaccine1 02/06/15 Given pneumococcal 23-polyvalent vaccine 11/09/06 Recorded tetanus-diphth toxoids (Td) adult/adol 12/15/11 Given zoster vaccine live 02/09/13 Given 1Early/Late Reason: Nursing Judgment Procedures Procedure Date Related Diagnosis Body Site Eye examination1 04/14/15 Colonoscopy2 06/04/10 1Dr Torsten Cantu2Repeat in 5 years Social History Social History Type Response Smoking Status Never smoker Assessment and Plan Extracted from: Title: Office Visit Note Author: Jonathan Milligan MD Date: 09/02/16 Assessment/Plan 1.Atrial fibrillation Chronic rate controlled and stable. Continueoral Coumadin. Other meds are reviewed no changes are recommended. Recentlaboratory studies from last May reviewed. Follow-up in3 months 2.CAD (coronary artery disease) Chronic stable no signs of ischemia or angina no change in current treatment is recommended. Follow-up in 3 months. 3.Essential hypertension Blood pressures a little high here but he's been several times and had it checked and its been running normal. No change in current treatment is recommended. Report card reviewed and provided. Follow-up in 3 months. 4.Pure hypercholesterolemia Previous laboratory studies reviewed no changes are recommended at this time continue current treatment plan. Follow-up in 3 months 5.Chronic anticoagulation Continue INRchecks on a routine basis continue current dose of Coumadin. For a simple dental cleaning I don't think he needs to hold his Coumadin. If he were to have an extraction or morein depth surgical treatment that may require furthermodification of his dosage.
--- OUTSIDE RECORDS SUMMARY | 2017-06-19 08:54 | External Medical Summary | Referral Summary ---
:1935 Author Organization [facility] [place] [address] Care Team Providers Name Role Phone Jonathan Milligan Primary Care Physician Encounter VC Date(s): 02/06/15 - 02/06/15 [facility] [place] [address]- Discharge Diagnosis: CAD (coronary artery disease) Discharge [...] 911., # 25 tabs, 1 Refill(s), eRx: [facility] #[id number], PLACE 1 UNDER TONGUE NEEDED FOR CHEST PAIN.MAY REPEAT IN 5 MIN. X3 TOTAL.NO RE... Start Date: 01/02/15 Status: OrderedRefresh Plus ophthalmic solution 1 drops, Eye-Both, BID, as needed for dry eyes, # 30 mL, 0 Refill(s) Start Date: 02/01/14 Status: Orderedsimvastatin 20 mg oral tablet See Instructions, TAKE ONE TABLET BY MOUTH AT BEDTIME, # 30 tabs, 5 Refill(s), eRx: [facility]#[id number], TAKE ONE TABLET BY MOUTH AT BEDTIME Start Date: 02/17/15 Status: Orderedtriamcinolone 0.025% topical ointment 1 ofelia, Topical, BID, # 15 g, 0 Refill(s), Pharmacy: [facility] #[id number] Start Date: 10/25/14 Stop Date: 10/29/14 Status: Orderedwarfarin 2 mg oral tablet See Instructions, TAKE THREE TABLETS BY MOUTH ONCE A DAY OR DIRECTED., # 100 tabs, 2 Refill(s), eRx: [facility] #[id number], TAKE THREE TABLETS BY MOUTH ONCE A [...] lead to a heart attack (myocardial infarction, ME). An ME can lead to heart failure, cardiogenic shock, or sudden cardiac . CAD can cause an ME through: Plaque buildup that can severely narrow [...] coronary artery is narrowed or blocked, an ME can occur. ME symptoms can include: Chest pain (agina). Angina [...] in the detection of a sudden (acute) ME or as a marker for a previous ME. Depending on which heart (coronary) artery ma y be blocked, an ECG may not scrap picker an ME pattern. Exercise stress test. A stress test [...] anti- platelet medicine can result in an ME. Talk with y our caregiver before stopping medicine or if you cannot afford your medicine. If the coronary arteries are significantly blocked, surgery may be needed. This can include: Percutaneous coronary intervention (PCI) with or without stent placement. Coronary artery bypass graft surgery (CABG). SEEK IMMEDIATE MEDICAL CARE IF: You develop ME symptoms. This is a medical emergency. Get help at once. Call your local emergency service (911 in the [place] immediately. Do not drive yourself to the clinic or hospital. ME symptoms can include: Angina or pain that occurs in the neck, arm, jaw, or in the upper middle back. Profuse sweating without cause. Shortness of breath or difficulty breathing without cause. Unexplained nausea or epigastric pain that feels like heartburn. Document Released: 09/25/2012 Document Reviewed: 09/25/2012 [facility] Patient Information 2015 [employer]. This information is not intended to replace [...] lead to a heart attack (myocardial infarction, ME). An ME can lead to heart failure, cardiogenic shock, or sudden cardiac . CAD can cause an ME through: Plaque buildup that can severely narrow [...] coronary artery is narrowed or blocked, an ME can occur. ME symptoms can include: Chest pain (agina). Angina [...] in the detection of a sudden (acute) ME or as a marker for a previous ME. Depending on which heart (coronary) artery ma y be blocked, an ECG may not scrap picker an ME pattern. Exercise stress test. A stress test [...] anti- platelet medicine can result in an ME. Talk with y our caregiver before stopping medicine or if you cannot afford your medicine. If the coronary arteries are significantly blocked, surgery may be needed. This can include: Percutaneous coronary intervention (PCI) with or without stent placement. Coronary artery bypass graft surgery (CABG). SEEK IMMEDIATE MEDICAL CARE IF: You develop ME symptoms. This is a medical emergency. Get help at once. Call your local emergency service (911 in the [place] immediately. Do not drive yourself to the clinic or hospital. ME symptoms can include: Angina or pain that occurs in the neck, arm, jaw, or in the upper middle back. Profuse sweating without cause. Shortness of breath or difficulty breathing without cause. Unexplained nausea or epigastric pain that feels like heartburn. Document Released: 09/25/2012 Document Reviewed: 09/25/2012 [employer] Patient Information 2015 [employer]. This information is not intended to replace [...] lead to a heart attack (myocardial infarction, ME). An ME can lead to heart failure, cardiogenic shock, or sudden cardiac . CAD can cause an ME through: Plaque buildup that can severely narrow [...] coronary artery is narrowed or blocked, an ME can occur. ME symptoms can include: Chest pain (agina). Angina [...] in the detection of a sudden (acute) ME or as a marker for a previous ME. Depending on which heart (coronary) artery ma y be blocked, an ECG may not scrap picker an ME pattern. Exercise stress test. A stress test [...] anti- platelet medicine can result in an ME. Talk with y our caregiver before stopping medicine or if you cannot afford your medicine. If the coronary arteries are significantly blocked, surgery may be needed. This can include: Percutaneous coronary intervention (PCI) with or without stent placement. Coronary artery bypass graft surgery (CABG). SEEK IMMEDIATE MEDICAL CARE IF: You develop ME symptoms. This is a medical emergency. Get help at once. Call your local emergency service (911 in the [place] immediately. Do not drive yourself to the clinic or hospital. ME symptoms can include: Angina or pain that occurs in the neck, arm, jaw, or in the upper middle back. Profuse sweating without cause. Shortness of breath or difficulty breathing without cause. Unexplained nausea or epigastric pain that feels like heartburn. Document Released: 09/25/2012 Document Reviewed: 09/25/2012 [facility] Patient Information 2015 [employer]. This information is not intended to replace [...] vitamins, herbs, eye drops, creams , and ikrm-idg-kfvffve medicines. Previous problems you or members of [...] Revised: 07/09/2014 Document Reviewed: 03/11/2014 [facility] Patient Information 2015 [employer]. This information is not intended to replace [...] lead to a heart attack (myocardial infarction, ME). An ME can lead to heart failure, cardiogenic shock, or sudden cardiac . CAD can cause an ME through: Plaque buildup that can severely narrow [...] coronary artery is narrowed or blocked, an ME can occur. ME symptoms can include: Chest pain (agina). Angina [...] in the detection of a sudden (acute) ME or as a marker for a previous ME. Depending on which heart (coronary) artery ma y be blocked, an ECG may not scrap picker an ME pattern. Exercise stress test. A stress test [...] anti- platelet medicine can result in an ME. Talk with y our caregiver before stopping medicine or if you cannot afford your medicine. If the coronary arteries are significantly blocked, surgery may be needed. This can include: Percutaneous coronary intervention (PCI) with or without stent placement. Coronary artery bypass graft surgery (CABG). SEEK IMMEDIATE MEDICAL CARE IF: You develop ME symptoms. This is a medical emergency. Get help at once. Call your local emergency service (911 in the [place] immediately. Do not drive yourself to the clinic or hospital. ME symptoms can include: Angina or pain that occurs in the neck, arm, jaw, or in the upper middle back. Profuse sweating without cause. Shortness of breath or difficulty breathing without cause. Unexplained nausea or epigastric pain that feels like heartburn. Document Released: 09/25/2012 Document Reviewed: 09/25/2012 [facility] Patient Information 2015 [employer]. This information is not intended to replace [...] months. Ordered: Office Visit Level 4 Est 56984 CAD (coronary artery disease) No signs of ischemia. Dictations reviewed no changes recommended. He'll have his treadmill in February as mentioned above. Follow-up here in 6 months. Ordered: pneumococcal 13-valent conjugate vaccine, 0.5 mL, IntraMuscular, Once, First Dose: 02/06/15 16:00:00 CDT, Stop Date: 02/06/15 16:00:00 CDT, Form: Injection Office Visit Level 4 Est 50731 Essential hypertension Pressure appears to be adequately controlled. No change in current treatment is recommended. Follow-up in 6 months. Ordered: Office Visit Level 4 Est 88916 Pure hypercholesterolemia Recent laboratory studies are reviewed. Change in current treatment is recommended. Follow-up in 6 months. Ordered: Office Visit Level 4 Est 73805
--- OUTSIDE RECORDS SUMMARY | 2017-06-19 08:54 | External Medical Summary | Referral Summary ---
:1935 Author Organization [facility] Dermatology Address [address] [place] [address] Care Team Providers Name Role Phone Jonathan Milligan Primary Care Physician Encounter VC Date(s): 12/20/14 - 12/20/14 [facility] [address] [place] [address]- [place] Discharge Diagnosis: Squamous cell [...] 911., # 25 tabs, 1 Refill(s), eRx: [facility] #[id number], PLACE 1 UNDER TONGUE NEEDED FOR CHEST PAIN.MAY REPEAT IN 5 MIN. X3 TOTAL.NO RE... Start Date: 01/02/15 Status: OrderedRefresh Plus ophthalmic solution 1 drops, Eye-Both, BID, as needed for dry eyes, # 30 mL, 0 Refill(s) Start Date: 02/01/14 Status: Orderedsimvastatin 20 mg oral tablet See Instructions, TAKE ONE TABLET BY MOUTH AT BEDTIME, # 30 tabs, 5 Refill(s), eRx: [facility]#[id number], TAKE ONE TABLET BY MOUTH AT BEDTIME Start Date: 02/17/15 Status: Orderedtriamcinolone 0.025% topical ointment 1 ofelia, Topical, BID, # 15 g, 0 Refill(s), Pharmacy: [facility] #[id number] Start Date: 10/25/14 Stop Date: 10/29/14 Status: Orderedwarfarin 2 mg oral tablet See Instructions, TAKE THREE TABLETS BY MOUTH ONCE A DAY OR DIRECTED., # 100 tabs, 2 Refill(s), eRx: [facility] #[id number], TAKE THREE TABLETS BY MOUTH ONCE A [...] of concern. 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
--- OUTSIDE RECORDS SUMMARY | 2017-06-19 08:54 | External Medical Summary | Referral Summary ---
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 X3 TOTAL.NO RE... Start Date: 01/02/15 Status: OrderedRefresh Plus ophthalmic solution 1 drops, Eye-Both, BID, as needed for dry eyes, # 30 mL, 0 Refill(s) Start Date: 02/01/14 Status: Orderedsimvastatin 20 mg oral tablet See Instructions, TAKE ONE TABLET BY MOUTH AT BEDTIME, # 30 tabs, 5 Refill(s), eRx: [facility]#[id number], TAKE ONE TABLET BY MOUTH AT BEDTIME Start Date: 02/17/15 Status: Orderedtriamcinolone 0.025% topical ointment 1 ofelia, Topical, BID, # 15 g, 0 Refill(s), Pharmacy: [facility] #[id number] Start Date: 10/25/14 Stop Date: 10/29/14 Status: Orderedwarfarin 2 mg oral tablet See Instructions, TAKE THREE TABLETS BY MOUTH ONCE A DAY OR DIRECTED., # 100 tabs, 2 Refill(s), eRx: [facility] #[id number], TAKE THREE TABLETS BY MOUTH ONCE A [...] Body Site Destruction (eg, laser surgery, electrosurgery, 06/27/15 cryosurgery, chemosurgery, surgical curettement), premalignant lesions (eg, actinic keratoses); first lesion Destruction (eg, laser surgery, electrosurgery, 06/27/15 cryosurgery, chemosurgery, surgical curettement), premalignant lesions (eg, actinic keratoses); second through 14 lesions, each (List separately in addition to code for first lesion).. Eye examination1 04/14/15 Colonoscopy2 06/04/10 1Dr Torsten Cantu2Repeat in 5 years Social History Social History Type Response Smoking Status Never smoker Assessment and Plan Extracted from: Title: Office Visit Note Author: Tripp Stephens MD Date: 06/27/15 Assessment/Plan 1.AK (actinic keratosis) I froze 6 AK's on the hands Discussed diagnosis and prognosis and treatment of [...] and consented to the procedure(s). I froze 6 [address] for approximately 5-7 seconds each. Wound care instructions given. Discussed/educated patie nt on sun protection measures, importance of sun protection, and need for self- skin examination. Recommended regular (at least yearly, or sooner if directed in other follow-up instructions) dermatolog y follow-up examinations due to high-risk of more AK's and risk of skin cancers , and recommend follow-up dermatology examination for any changing or concerning moles, growths, or skin changes of concern. Ordered: Destruction premalignant lesion 1st 15794 Destruction premalignant lesion 2-14, Each 79589 2.Seborrheic keratoses Reassurance Ordered: Office Visit Level 3 Est 01285 3.Senile purpura Sun protection and long sleeves Ordered: Office Visit Level 3 Est 98782 4.History of squamous cell carcinoma in situ of skin The site on the left roman catholic is well-healed with no sign of recurrence. Follow-up in 6 months and dermatology or sooner as needed for any changes or sites of concern Ordered: Office Visit Level 3 Est 69811
--- OUTSIDE RECORDS SUMMARY | 2017-06-19 08:54 | External Medical Summary | Referral Summary ---
:1935 [facility] [address] [place] [address] [place] [address] Care Team Providers Name Role Phone Jonathan Milligan Primary Care Physician Encounter VC Date(s): 01/21/16 - 01/21/16 [facility] [place] [address]- Discharge Diagnosis: Strain of calf muscle Discharge Disposition: 01-Home or Self Care Attending Physician: Jonathan Milligan MD Admitting Physician: Jonathan Milligan MD Vital Signs Most recent to oldest [Reference Range]: 1 Temperature Tympanic [36.6-38.1 degC] 35.9 degC *LOW* (01/21/16 10:49 AM) Peripheral Pulse Rate [60-100 bpm] 68 bpm (01/21/16 10:49 AM) Blood Pressure [90-140/60-90 mmHg] 146/70 mmHg *HI* (01/21/16 10:49 AM) Problem List Condition Effective Dates Status Health [...] Daily, # 30 tabs, 0 Refill(s), Pharmacy: [facility] # [id number], 1 tabs Oral Daily Start Date: 01/21/16 Status: Orderedmetoprolol tartrate 100 mg oral tablet 1 tabs, Oral, BID, # 180 tabs, 0 Refill(s) Start Date: 02/01/14 Status: Orderednitroglycerin 0.4 mg sublingual tablet See Instructions, PLACE 1 UNDER TONGUE NEEDED FOR CHEST PAIN.MAY REPEAT IN 5 MIN. X3 TOTAL.NO RELIEF-CALL 911., # 25 tabs, 1 Refill(s), eRx: [facility] #[id number], PLACE 1 UNDER TONGUE NEEDED FOR CHEST PAIN.MAY REPEAT IN 5 MIN. X3 TOTAL.NO RE... Start Date: 01/02/15 Status: OrderedRefresh Plus ophthalmic solution 1 drops, Eye-Both, BID, as needed for dry eyes, # 30 mL, 0 Refill(s) Start Date: 02/01/14 Status: Orderedsimvastatin 20 mg oral tablet See Instructions, TAKE ONE TABLET BY MOUTH AT BEDTIME, # 30 tabs, 5 Refill(s), eRx: [facility]#[id number], TAKE ONE TABLET BY MOUTH AT BEDTIME Start Date: 08/19/15 Status: Orderedwarfarin 2 mg oral tablet See Instructions, TAKE THREE TABLETS BY MOUTH ONCE A DAY OR DIRECTED., # 100 tabs, 5 Refill(s), eRx: [facility] #[id number], TAKE THREE TABLETS BY MOUTH ONCE A [...] Visit Note Author: Jonathan Milligan MD Date: 01/21/16 Assessment/Plan 1.Strain of calf muscle, Strain of other muscle(s) and tendon(s) at lower leg level, unspecified leg, initial encounter I think this is a muscular strain. I've recommended physical therapy and I've also recommended meloxicam 15 mg daily. Walking only as neededno excessive walkingif not improving over the next weekor further problems or concerns arise. Ordered: Office Visit Level 3 Est 31208 Orders: meloxicam, 15 mg 1 tabs, Oral, Daily, # 30 tabs, 0 Refill(s), Pharmacy: [facility] #[id number], 1 tabs Oral Daily
--- NOTE | 2017-06-19 09:33 | Emergency Department Report ---
Dizziness HPI - General Chief Complaint: Dizziness Stated Complaint: Dizzy Time Seen by Provider: 06/19/17 08:39 Source: patient, family Mode of arrival: ambulatory Limitations: no limitations - History of Present Illness HPI Narrative: 82yo man presents to the ER this AM for evaluation of dizziness. Pts sx began this AM around 0230; pt was up to micturate, when he noticed that his gait was unsteady and he had to hold on to furniture to prevent falling into the wall/ objects. Pt has never had anything like this before. He went to bed and sleep. When he woke up later this AM, he still had sx, so he came to the ER. complaint: dizziness Onset (ago): hour(s) (7) Time: 0230 Timing: sudden onset Description: off-balance, difficulty walking Severity: severe Relieving factors: remaining still Exacerbating factors: movement, exertion Associated symptoms: denies other symptoms - Related Data Home Medications Medication Instructions Recorded Confirmed Simvastatin [Zocor] 20 mg PO HS #0 01/07/09 06/19/17 Warfarin Sodium 5 mg PO DAILY #100 11/03/14 06/19/17 Aspirin [Ecotrin] 81 mg PO HS 06/19/17 06/19/17 Metoprolol Tartrate [Lopressor] 100 mg PO BID 06/19/17 06/19/17 Allergies Allergy/AdvReac Type Severity Reaction Status Date / Time No Known Drug Allergies Allergy Unknown Verified 06/19/17 09:35 Review of Systems All systems: reviewed and negative except as stated Neurological: Reports: as per HPI, vertigo. Denies: headache, weakness, numbness, paresthesias, confusion, abnormal gait PFSH Patient Stated Medical History Cataracts Yes Other HEENT Yes: "BLOOD BEHIND ONE OF THE EYES" Cardiac Arrhythmia Yes: AFIB HX Hypertension Yes Other Musculoskeletal Yes: HX BILAT BROKEN ARMS Surgical History: 4v CABG - Social History Smoking status: Never smoker Physical Exam - Limitations Limitations: no limitations - General General appearance: alert, in no apparent distress - Normal Exams: Head:: Normocephalic without trauma Eyes:: Pupils are PERRLA w/ EOMI, No scleral icterus, irritation, or foreign bodies noted ENMT:: No facial trauma, nasal exudates, pharyngeal erythema, or exudates are noted Neck:: Full range of motion, without adenopathy Chest/Respirations:: Clear all laureano, with good airflow, and symmetry bilaterally Cardiovascular:: Regular rate and rhythm, without murmur or gallop, Pulses 2+ all extremities, capillary refill, <2 seconds all extremities Lymphatic:: No lymphadenopathy Musculoskeletal:: No tenderness, or deformity noted, good range of motion Integumentary:: No rashes, hives, or bruising noted, hair and nails, without abnormality Psychiatric:: Patient exhibits, appropriate attention - Neurological Exam Neurological exam: Present: alert, oriented X3, CN II-XII intact, reflexes normal. Absent: normal gait, motor sensory deficit - Expanded Neurological Exam Patient oriented to: Present: person, place, time Speech: Present: fluid speech Cranial nerves: Normal: EOM function (II, III, IV, ), facial sensation (V), facial palsy (VII), spinal accessory function (XI), tongue deviation (XII) Cerebellar function: Normal: finger to nose, heel to velazuqez Cerebellar function: wide-based gait Motor strength - LUE: 5/5 Motor strength - RUE: 5/5 Motor strength - LLE: 5/5 Motor strength - RLE: 5/5 Upper motor neuron exam: Absent bilaterally: davey neglect, pronator drift, Babinski sign, sensory extinction Sensory exam upper extremity: Normal: light touch, pin prick, temperature DTR: 2+: biceps (L), biceps (R), patellar (L), patellar (R) Coma scale eye opening: spontaneous Coma scale motor response: obeys commands Coma scale verbal response: oriented Coma scale total: 15 Course - Consultations Consultation #1: Hospitalist: Will admit for completion of stroke protocol. Time: 10:19 Vital Signs Temperature 97.5 F 06/19/17 08:27 Pulse Rate 93 06/19/17 08:27 Respiratory Rate 20 06/19/17 08:27 Blood Pressure 218/94 H 06/19/17 08:27 Pulse Oximetry 98 06/19/17 08:27 Temperature 97.5 F 06/19/17 08:27 Pulse Rate 93 06/19/17 08:27 Respiratory Rate 20 06/19/17 08:27 Blood Pressure 218/94 H 06/19/17 08:27 Pulse Oximetry 98 06/19/17 08:27 Dizziness - Differential Diagnosis Likely: adverse reaction to drug, benign paroxysmal positional vertigo, orthostatic hypotension, vertebral basilar insufficiency, cerebrovascular accident, acute vestibular neuronitis, transient cerebral ischemia - Medical Records Attestation: I reviewed the patient's medical records. - Lab Data Attestation: I reviewed the patient's lab results. Result diagrams: 06/19/17 09:12 06/19/17 09:43 Lab Results 06/19/17 06/19/17 06/19/17 Range/Units 09:12 09:12 09:43 WBC 6.3 (4.5-11.0) T/MM3 RBC 4.32 L (4.50-5.90) M/MM3 Hgb 13.2 L (13.5-17.5) GM/DL Hct 41.1 (41-53) % MCV 95.1 (80-100) UM3 MCH 30.6 (26-34) UUG MCHC 32.1 (31-37) GM/DL RDW Std Deviation 41.9 (36.9-50.2) FL Plt Count 68 L (130-400) T/MM3 MPV 14.0 H (9.4-12.4) UM3 Immature Gran % (Auto) 0.2 (0.0-0.5) % Neut % (Auto) 64.0 (33-66) % Lymph % (Auto) 23.3 (23-45) % [place] % (Auto) 7.9 (0-9.0) % Eos % (Auto) 4.3 H (0-4) % Baso % (Auto) 0.3 (0-2) % Neut # (Auto) 4.0 (1.8-7.7) T/MM3 Lymph # (Auto) 1.5 (1-4.8) T/MM3 [place] # (Auto) 0.5 (0-0.8) T/MM3 Eos # (Auto) 0.3 (0-0.5) T/MM3 Baso # (Auto) 0.0 (0-0.2) T/MM3 Abs Immat Gran (auto) 0.01 (0.00-0.03) T/MM3 INR 2.70 H (0.99-1.21) APTT 45.5 H (24-36) SEC Turbidity < 20 (0-20) Sodium 144 (134-144) MEQ/L Potassium 4.8 (3.6-5) MEQ/L Chloride 109 H (98-107) MEQ/L Carbon Dioxide 29 (22-30) MEQ/L Anion Gap 6 (5-15) MEQ/L BUN 22.0 H (9-20) MG/DL Creatinine 1.0 (0.8-1.5) MG/DL GFR Calculation 71 BUN/Creatinine Ratio 22 (6-26) RATIO Glucose 75 (75-110) MG/DL Calculated Osmolality 279 (261-280) MOSM/KG Calcium 9.2 (8.4-10.2) MG/DL Total Bilirubin 0.40 (0.20-1.30) MG/DL Icterus Index < 2 (0-7) AST 24 (17-59) U/L ALT 29 (21-72) U/L Alkaline Phosphatase 56 (38-126) U/L Total Protein 6.6 (6.3-8.2) G/DL Albumin 3.7 (3.5-5.0) G/DL Globulin 2.9 (2.4-3.6) G/DL Albumin/Globulin Ratio 1.3 (1.1-2.2) RATIO Specimen Hemolysis < 15 (0-25) - Radiology Data Attestation: I reviewed the patient's radiology results. CT head: FINDINGS: Brain: There is mild to moderate central and cortical atrophy. There is mild to moderate and vessel ischemic changes in the deep white matter. 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 No hemorrhage. Ventricles: Unremarkable. No ventriculomegaly. Bones/joints: Unremarkable. No acute fracture. Soft tissues: Unremarkable. Sinuses: Unremarkable as visualized. No acute sinusitis. Mastoid air cells: Unremarkable as visualized. No mastoid effusion. IMPRESSION: Chronic changes - EKG Data EKG #1 EKG attestation: Yes: I reviewed and interpreted this EKG. EKG results narrative: Electronically paced. Disposition Clinical Impression: Dizziness, Unsteady gait Disposition: 02 To [facility] Print Language: Malaysian Condition: Improved Prescriptions: No Action Aspirin [Ecotrin] 81 mg PO HS Simvastatin [Zocor] 20 mg PO HS #0 Warfarin Sodium 5 mg PO DAILY #100 Metoprolol Tartrate [Lopressor] 100 mg PO BID Referrals: Jonathan Milligan MD [Family Provider] - Time of Disposition: 10:24 - Seen By: physician
--- NOTE | 2017-06-19 10:42 | CT Scan Report ---
Indication: Dizziness PROCEDURE: CT head/brain wo con: Encounter: Initial Comparison: None Technique: Axial CT images through the head were performed without contrast. Iterative Reconstruction dose reducing technique was utilized. FINDINGS: Mild generalized atrophy. The ventricles are of normal size, shape, and contour for the patient's age. There are scattered areas of low attenuation in the white matter which most likely represent changes from chronic microvascular ischemia. The brainstem, cerebellum, and cerebral hemispheres otherwise have a normal morphology and CT attenuation. There is no evidence of midline displacement. No hemorrhage, signs of acute territorial stroke, mass effect, mass lesions, or edema is evident. The visualized portions of the skull base, midface, and calvarium demonstrate no abnormality. The paranasal sinuses are well aerated and free of significant disease. The tympanic and mastoid cavities appear normal. IMPRESSION: No acute intracranial abnormality or hemorrhage. There is a preliminary report by [facility] [facility]. .
[2017-06-19 11:25] VITALS: BMI 26.3
[2017-06-19] MEDS ORDERED: LABETALOL 100mg/20ml INJECTION IVP PRN (12:11)
--- NOTE | 2017-06-19 14:52 | History & Physical Report ---
History of Present Illness Date: 06/19/17 Chief complaint: Dizziness HPI: Mr. Boone is a very pleasant 82-year-old gentleman with history of CAD s/p CABG x 4, afib on chronic warfarin anticoagulation, hyperlipidemia who presented to the ED this morning with dizziness. He awoke in the middle of the night and was dizzy; he describes this as an unsteadiness, inability to maintain his gait. He denies spinning or vertigo type symptoms, denies palpitations, syncope , chest pain, associated dyspnea or nausea. He want back to bed hoping the symptoms would subside but when he awoke this morning and was trying to go about starting his day he still could not ambulate appropriately due to this gait instability that he describes as feeling "dizzy". Symptoms persisted after arrival to the ED although he is now asymptomatic. No other focal deficits were found on arrival. He had normal blood sugar when checked. Labs were unremarkable with normal electrolytes and renal function, Hb only slightly low at 13.2. He had a noncontrasted CT of the head with no bleeding complications noted. His INR is therapeutic at 2.7. I was asked to admit for MRI and further evaluation of his symptoms to rule out basilar infarct. BP is elevated on arrival in the 180s systolic. Currently he is hungry but denies any other complaints. is at the bedside. Of note, he does have a PPM that was placed 8+ years ago and is trying to find his PM information card so we can determine if he can undergo MRI. He sees Dr. Brody ([facility]) for his cardiology care; no recent angina or other vascular issues. Review of Systems - Constitutional Constitutional: Present: as per HPI. Absent: fever(s), night sweats, weakness - EENMT Eyes: Absent: blurry vision, diplopia Nose: Absent: change in smell, nosebleeds Mouth/Throat: Absent: sore throat, change in taste - Cardiovascular Cardiovascular: Absent: chest pain, palpitations, syncope, dyspnea on exertion - Respiratory Respiratory: Absent: cough, wheezing - Gastrointestinal Gastrointestinal: Absent: abdominal pain, constipation, diarrhea - Genitourinary Genitourinary: Absent: difficulty urinating, flank pain, hematuria - Musculoskeletal Musculoskeletal: Present: abnormal gait, arthralgias. Absent: muscle cramps, myalgias, neck pain - Integumentary/Breasts Integumentary: Absent: change in hair, change in nails, jaundice - Neurological Neurological: Present: abnormal gait. Absent: focal weakness, memory loss, paresthesias, sensory deficit, vertigo - Psychiatric Psychiatric: Absent: anxiety, depression - Endocrine Endocrine: Absent: cold intolerance, heat intolerance - Hematologic/Lymphatic Hematologic/Lymphatic: Present: easy bruising. Absent: easy bleeding PFSH Patient Stated Medical History Cataracts Yes Other HEENT Yes: "BLOOD BEHIND ONE OF THE EYES" Cardiac Arrhythmia Yes: AFIB HX Coronary Artery Disease Yes Hypertension Yes Other Musculoskeletal Yes: HX BILAT BROKEN [facility]MS [facility] Medical History Dizziness (Acute Medical) Unsteady gait (Acute Medical) Surgical History: 4v CABG, PM placement Family History: No family history of stroke per his knowledge. + HTN in several family members - Social History Smoking status: Never smoker Alcohol intake frequency: does not drink Housing: house Household members: spouse Does patient use chewing tobacco?: No Medications Home Medications Medication Instructions Recorded Confirmed Type Simvastatin [Zocor] 20 mg PO HS #0 01/07/09 06/19/17 History Warfarin Sodium 5 mg PO DAILY #100 11/03/14 06/19/17 History Aspirin [Ecotrin] 81 mg PO HS 06/19/17 06/19/17 History Metoprolol Tartrate [Lopressor] 100 mg PO BID 06/19/17 06/19/17 History Allergies Allergy/AdvReac Type Severity Reaction Status Date / Time No Known Drug Allergies Allergy Unknown Verified 06/19/17 09:35 Exam Vital Signs: Temperature 97.6 F 06/19/17 11:16 Pulse Rate 63 06/19/17 11:16 Respiratory Rate 16 06/19/17 11:16 Blood Pressure 182/77 H 06/19/17 11:16 Pulse Oximetry 98 06/19/17 11:16 Telemetry Rhythm: Sinus Rhythm Height/Weight/BMI: Height 1.8 m Weight 85.7 kg Body Mass Index 26.3 - Constitutional Present: no acute distress, well nourished, well developed, cooperative - Routine HEENT Exam Head: Present: normocephalic, atraumatic Eye: Present: EOMI, PERRL, normal accommodation. Absent: conjunctival icterus ENT: Present: mucous membranes moist, oropharynx clear - Routine Neck Exam Present: supple, full ROM. Absent: JVD, carotid bruit, lymphadenopathy - Routine Chest/Breast/Axilla Exam Chest wall: Present: pacemaker. Absent: tenderness - Routine Respiratory Exam Present: CTA bilaterally. Absent: rhonchi, wheezes, crackles - Routine Cardiovascular Exam Present: RRR. Absent: murmur - Routine Abdominal Exam Present: soft, normoactive bowel sounds, non distended, non tender - Routine Extremities Exam Present: pulses intact, normal capillary refill. Absent: edema - Routine Skin Exam Present: dry, warm. Absent: jaundice, rash - Routine Neurological Exam Present: alert, oriented X3, CN II-XII intact, moving all extremities, vision grossly intact, hearing grossly intact, normal speech - Routine Psychiatric Exam Present: normal affect, normal thought process Results - Labs CBC & Chem 7: 06/19/17 09:12 06/19/17 09:43 Assessment and Plan (1) Dizziness Current visit: Yes Status: Acute (2) Unsteady gait Current visit: Yes Status: Acute Assessment and Plan: Assessment: Acute dizziness and gait unsteadiness, now resolved, unclear if secondary to TIA /evolving stroke versus medication effect or otolith disruption Hypertension, not well controlled on initial presentation with systolic BP 180s --> permissive hypertension acutely in the setting of possible stroke Hyperlipidemia, maintained on simvastatin chronically CAD s/p CABG x4 previously, no active angina, follows with Dr. Brody for cardiology care Chronic paroxysmal afib, AC with warfarin and rate controlled with metoprolol PM placement remotely (> 8 years ago per patient report) Anemia, normocytic and mild with Hb 13.2 on arrival Plan/Recommendations: Keep for observation for TIA evaluation, monitor on telemetry on the medical floor MRI/MRA ordered but will need to find information regarding PM prior to pursuing as it may not be an option --> Discussed with radiology, will evaluate further in AM and patient looking for his PM information card Assess carotid doppler study bilat Permissive HTN for now but will treat systolic > 185 with prn labetalol and hydralazine Continue home warfarin and ASA 81 mg pending further evaluation Will start crestor 20 mg pending further evaluation of stroke for secondary prevention, hold home zocor Monitor NIH scale for any changes Allow cardiac diet if no concerns with bedside swallow Discussed with the radiology department, bedside RN, patient's and ED physician. DVT Prophylaxis: Coumadin Resuscitation Status: Full Code Hospital Course Summary Disclaimer: The visit summary below is not to be considered part of the above Progress Note. Hospital Course: 06/19/17 15:06 [place] Assessment: Acute dizziness and gait unsteadiness, now resolved, unclear if secondary to TIA /evolving stroke versus medication effect or otolith disruption Hypertension, not well controlled on initial presentation with systolic BP 180s --> permissive hypertension acutely in the setting of possible stroke Hyperlipidemia, maintained on simvastatin chronically CAD s/p CABG x4 previously, no active angina, follows with Dr. Brody for cardiology care Chronic paroxysmal afib, AC with warfarin and rate controlled with metoprolol PM placement remotely (> 8 years ago per patient report) Anemia, normocytic and mild with Hb 13.2 on arrival Plan/Recommendations: Keep for observation for TIA evaluation, monitor on telemetry on the medical floor MRI/MRA ordered but will need to find information regarding PM prior to pursuing as it may not be an option --> Discussed with radiology, will evaluate further in AM and patient looking for his PM information card Permissive HTN for now but will treat systolic > 185 with prn labetalol and hydralazine Assess carotid doppler study Continue home warfarin and ASA 81 mg pending further evaluation Will start crestor 20 mg pending further evaluation of stroke for secondary prevention, hold home zocor Monitor NIH scale for any changes Allow cardiac diet if no concerns with bedside swallow
[2017-06-19] MEDS ORDERED: WARFARIN 5 MG TABLET PO SCH (17:00)
[2017-06-19] MEDS: POM METOPROLOL TARTRATE 100mg TABLET PO SCH (17:16)
[2017-06-19] MEDS ORDERED: ROSUVASTATIN 20 MG TABLET PO SCH (21:00)
[2017-06-19] MEDS ORDERED: POM ASPIRIN *EC* 81 MG TABLET PO SCH (21:00)
[2017-06-20 07:36] VITALS: RESP 12; TEMP 97.6; O2SAT 98
[2017-06-20] MEDS: POM METOPROLOL TARTRATE 100mg TABLET PO SCH ×3 (08:03→08:23)
[2017-06-20] MEDS ORDERED: ACETAMINOPHEN 500 MG TABLET PO PRN (10:01)
--- NOTE | 2017-06-20 11:00 | Ultrasound Report ---
Indication: dizziness, concern for stroke/TIA PROCEDURE: US carotid doppler BI: Encounter: Initial Comparison: None. TECHNIQUE: Suarez-scale, color flow, and spectral pulsed Doppler imaging of the carotid and vertebral arteries of both sides of the neck was performed with segmental recordings of velocity spectra. FINDINGS: There is moderate heterogeneous plaque bilaterally without dense calcific or shadowing plaque that might limit the sensitivity. Longitudinal color flow images reveal all vessels to be patent with a normal flow direction. The velocity spectra are of normal shape without flow acceleration or spectral broadening. The following peak systolic and end-diastolic velocities were measured (units given in cm/s): Right Common Carotid: 89 Prox Internal Car: 157/38 Mid Internal Carotid: 135/31 Dist Internal Carotid: 130/25 External Carotid: 216 Vertebral Artery: 61 antegrade Systolic Ratio: 1.7 Left Common Carotid: 110 Prox Internal Car: 92/19 Mid Internal Carotid: 138/35 Dist Internal Carotid: 85/17 External Carotid: 206 Vertebral Artery: 33 antegrade Systolic Ratio: 1.3 IMPRESSION: Normal to mild internal carotid artery stenosis, bilaterally, with estimated percent stenosis between 0% and 50% using NASCET criteria adapted to duplex ultrasound. Bilateral patent antegrade vertebral arteries. .
[2017-06-20 11:29] VITALS: BP 179/72; PULSE 69
--- NOTE | 2017-06-20 14:46 | Discharge Summary ---
<Lety Eaton V - Last Filed: 06/20/17 14:41> Discharge Information Date of admission: 06/19/17 10:37 Anticipated date of discharge: 06/20/17 Attending Physician: Desiree Larson MD Primary care physician: Jonathan Milligan MD Consults: None - Discharge Diagnosis (1) Dizziness Status: Acute (2) Unsteady gait Status: Acute Acute dizziness Hypertension Hyperlipidemia Coronary artery disease status post CABG Chronic paroxysmal atrial fibrillation Chronic anticoagulation Pacemaker Anemia - Procedures Procedures: None - Laboratory Labs: 06/20/17 04:06 06/20/17 04:06 - Microbiology None - Radiology Radiology: 06/19/17-CT scan of the brain- IMPRESSION: No acute intracranial abnormality or hemorrhage. 06/20/17- Carotid Doppler- IMPRESSION: Normal to mild internal carotid artery stenosis, bilaterally, with estimated percent stenosis between 0% and 50% using NASCET criteria adapted to duplex ultrasound. Bilateral patent antegrade vertebral arteries. History of Present Illness HPI: Mr. Boone is a very pleasant 82-year-old gentleman with history of CAD s/p CABG x 4, afib on chronic warfarin anticoagulation, hyperlipidemia who presented to the ED this morning with dizziness. He awoke in the middle of the night and was dizzy; he describes this as an unsteadiness, inability to maintain his gait. He denies spinning or vertigo type symptoms, denies palpitations, syncope , chest pain, associated dyspnea or nausea. He want back to bed hoping the symptoms would subside but when he awoke this morning and was trying to go about starting his day he still could not ambulate appropriately due to this gait instability that he describes as feeling "dizzy". Symptoms persisted after arrival to the ED although he is now asymptomatic. No other focal deficits were found on arrival. He had normal blood sugar when checked. Labs were unremarkable with normal electrolytes and renal function, Hb only slightly low at 13.2. He had a noncontrasted CT of the head with no bleeding complications noted. His INR is therapeutic at 2.7. I was asked to admit for MRI and further evaluation of his symptoms to rule out basilar infarct. BP is elevated on arrival in the 180s systolic. Currently he is hungry but denies any other complaints. is at the bedside. Of note, he does have a PPM that was placed 8+ years ago and is trying to find his PM information card so we can determine if he can undergo MRI. He sees Dr. Brody ([facility]) for his cardiology care; no recent angina or other vascular issues. Objective Vital signs: Temperature 97.6 F 06/20/17 07:33 Pulse Rate 69 06/20/17 11:28 Respiratory Rate 12 06/20/17 07:33 Blood Pressure 179/72 H 06/20/17 11:28 Pulse Oximetry 98 06/20/17 07:33 Height/Weight/BMI: Height 1.8 m Weight 84 kg Body Mass Index 26.3 - Constitutional Present: no acute distress, well nourished, well developed - Routine HEENT Exam Eye: Present: EOMI ENT: Present: mucous membranes moist, dentition normal - Routine Respiratory Exam Present: CTA bilaterally. Absent: wheezes - Routine Cardiovascular Exam Present: RRR, S1, S2. Absent: murmur - Routine Abdominal Exam Present: soft, normoactive bowel sounds, non distended. Absent: tenderness - Routine Extremities Exam Present: no edema - Routine Skin Exam Present: intact, dry, warm - Routine Neurological Exam Present: alert, oriented X3, CN II-XII intact, moving all extremities - Routine Lymphatic Exam Lymphatic: Absent: adenopathy - Routine Psychiatric Exam Present: normal affect, cooperative Hospital Course This is a general summary of the patient's hospital course. For more details refer to the complete medical record. Hospital course: 06/19/17 Assessment: Acute dizziness and gait unsteadiness, now resolved, unclear if secondary to TIA /evolving stroke versus medication effect or otolith disruption Hypertension, not well controlled on initial presentation with systolic BP 180s --> permissive hypertension acutely in the setting of possible stroke Hyperlipidemia, maintained on simvastatin chronically CAD s/p CABG x4 previously, no active angina, follows with Dr. Brody for cardiology care Chronic paroxysmal afib, AC with warfarin and rate controlled with metoprolol PM placement remotely (> 8 years ago per patient report) Anemia, normocytic and mild with Hb 13.2 on arrival 06/20/17- Discharge Plan/Recommendations: Mr Boone was observed overnight for further workup. He remained asymptomatic without any further episodes of lightheadedness or dizziness. He did inform us today that he did recently start Zyrtec for allergy symptoms and wonders if this could have attributed to his lightheadedness. Recommended that he switch from Zyrtec to Flonase or Nasacort for treatment of nasal drainage. Recommended monitoring blood pressure, and documenting this for several days and presenting to see PCP, Dr. Milligan with current blood pressures. He was not orthostatic upon examination. Unfortunately he is unable to obtain an MRI given his current pacemaker. The Carotid Doppler was performed that does reveal mild carotid stenosis. He remains chronically anticoagulated and therapeutic on warfarin for history of proximal atrial fibrillation. Patient did well as he was up and ambulated with therapy. Plan is to discharge patient home with and continue on normal home medications. He is instructed to follow-up with primary care provider, Dr. Milligan DVT Prophylaxis: Coumadin Discharge Plan - Discharge Disposition Discharge Date: 06/20/17 Disposition: 01 Discharged Home, Self-Care *Condition: Improved Reason For Visit (Visit label in EMR): Dizziness - Discharge Medications *Discharge Medications: Continue Aspirin [Ecotrin] 81 mg PO HS Simvastatin [Zocor] 20 mg PO HS #0 Warfarin Sodium 5 mg PO DAILY #100 Metoprolol Tartrate [Lopressor] 100 mg PO BID - Discharge Packet/Instructions *Diet: Low-salt *Activity: As tolerates *Pain Management/Treatment: Tylenol if needed, follow label directions for dosing *Wound Care: Not applicable Additional Instructions: Monitor your blood pressure every couple of days and if lightheaded; take readings to appointment when you see Dr. Milligan. Consider using Flonase or Nasacort spray for nasal allergies/drainage *Expected Signs/Symptoms: Nasal drainage likely since she experienced this in the past, may feel slightly lightheaded with sudden position changes or rapid movements *Notify Physician if: Additional episodes of lightheadedness or dizziness when you stand or move, sBP >160 on a frequent basis *During Business Hours Contact: [facility]/Dr. Milligan office *After Business Hours Contact: Dr. Milligan after our [facility] or [facility] and asked that the combination technician physician for Dr. Milligan be paged *Pending Lab/Results: No Pending Lab - Referrals/Follow Up - Patient Handouts Patient Handouts: Dizziness (GEN) - Dismissal Complete Discharge Instructions are:: Complete <Desiree Larson - Last Filed: 06/20/17 20:06> Discharge Information Primary care physician: - Discharge Diagnosis (1) Dizziness Status: Acute (2) Unsteady gait Status: Acute Objective Vital signs: Height/Weight/BMI: Hospital Course This is a general summary of the patient's hospital course. For more details refer to the complete medical record. Hospital course: I have independently evaluated and examined this patient. I reviewed the chart, the patient's history, and the [employer]ER/PA's documented findings as above. We discussed and formulated the assessment and plan as above with additions as below: Mr. Boone denies ongoing lightheadedness and specifically denies having ever felt vertiginous. He did well with physical therapy today. Blood pressure is moderately elevated and blood pressure increased standing relative to supine pressures. Recent outpatient blood pressures have generally been well controlled or minimally elevated by chart review. Patient reports only recent medication change was initiating Zyrtec 3 days before the episode which sounds like orthostatic hypotension prompting hospitalization. The patient is alert, respirations are nonlabored, and cardiac rhythm is regular. Patient moves all extremities well and skin turgor is normal. Stable for discharge, patient advised to hold Zyrtec and use nasal steroids as an alternate for rhinorrhea. Do not believe history is suggestive of intra-cerebral event.
== END 2017-06-20 14:15 | disposition home or self-care (01) ==
LOC: ED 08:25 → MED 08:25 → SUATTDRO 10:37 → MED 11:00
PROVIDERS: ADMIT Internal Medicine; ATTEND Internal Medicine